=== PATIENT | male | born 1960 | race Caucasian/White ===

== ENCOUNTER 2017-01-09 12:06 | Inpatient (IN) | payer BC ==
[2017-01-09 12:42] VITALS: BMI 28.7
--- NOTE | 2017-01-09 16:38 | HP ---
CIWA Score - CIWA Score Nausea/Vomitin-No Nausea/No Vomiting Muscle Tremors: 4-Moderate,w/Arms Extend Anxiety: 4-Mod. Anxious/Guarded Agitation: 4-Moderately Restless Paroxysmal Sweats: 3 Orientation: 0-Oriented Tacttile Disturbances: 2-Mild Itch/Numbness/Burn Auditory Disturbances: 0-None Visual Disturbances: 0-None Headache: 0-None Present CIWA-Ar Total Score: 17 Admission ROS S - HPI Chief Complaint: Withdrawal sx. Allergies/Adverse Reactions: Allergies Allergy/AdvReac Type Severity Reaction Status Date / Time Barbiturates Allergy Verified 01/09/17 16:32 History of Present Illness: 56 y/o man with a long hx. of alcohol & benzo dependence is admitted for detox.Pt. is in OTP taking methadone 60mg daily. Pt. has been in previous detox with sobriety off & on. Exam Limitations: No Limitations - Ebola screening Have you traveled outside of the country in the last 21 days: No Have you had contact with anyone from an Ebola affected area: No Have you been sick,other than usual withdrawal symptoms: No Do you have a fever: No - Review of Systems Constitutional: Diaphoresis EENT: reports: No Symptoms Reported Respiratory: reports: No Symptoms reported Cardiac: reports: No Symptoms Reported GI: reports: Nausea, Abdominal cramping : reports: No Symptoms Reported Musculoskeletal: reports: No Symptoms Reported Integumentary: reports: Sweating Neuro: reports: Seizure (last in 2003 alcohol & benzo withdrawal), Tingling, Tremors Endocrine: reports: No Symptoms Reported Hematology: reports: No Symptoms Reported Psychiatric: reports: No Sypmtoms Reported Other Systems: Reviewed and Negative Patient History - Patient Medical History Hx Anemia: No Hx Asthma: No Hx Chronic Obstructive Pulmonary Disease (COPD): No Hx Cancer: No Hx Cardiac Disorders: Yes (intermittent AF) Hx Congestive Heart Failure: No Hx Hypertension: Yes Hx Hypercholesterolemia: Yes Hx Pacemaker: No HX Cerebrovascular Accident: No Hx Seizures: Yes (2003) Hx Diabetes: Yes Hx Gastrointestinal Disorders: No Hx Liver Disease: Yes Hx Genitourinary Disorders: No Hx Sexually Transmitted Disorders: No Hx Renal Disease (ESRD): No Hx Thyroid Disease: No Hx Human Immunodeficiency Virus (HIV): No Hx Hepatitis C: Yes (no tx.) Hx Depression: Yes (on meds) Hx Suicide Attempt: Yes (once OD) Hx Bipolar Disorder: Yes (not sure) Hx Schizophrenia: No - Patient Surgical History Past Surgical History: Yes Hx Abdominal Surgery: Yes (splenectomy 1989, strangulated umbilical hernia, colostomy reversed.) - PPD History Previous Implant?: Yes Documented Results: Negative w/o proof PPD to be Administered?: Yes - Smoking Cessation Smoking history: Current every day smoker Aproximately how many cigarettes per day: 5 (from 20) Hx Chewing Tobacco Use: No Initiated information on smoking cessation: Yes 'Breaking Loose' booklet given: 01/09/17 - Substance & Tx. History Hx Alcohol Use: Yes Hx Substance Use: Yes Substance Use Type: Alcohol, Tranquilizers Hx Substance Use Treatment: Yes (detox,OTP) - Substances Abused Alcohol Route: Oral Frequency: Daily Amount used: Vodka 1 pint, Beer 2(6packs) Age of first use: 15 Date of Last Use: 01/08/17 Alprazolam (Xanax) Route: Oral Frequency: Daily Amount used: 2mg Age of first use: 33 Date of Last Use: 01/01/17 Family Disease History - Family Disease History Family Disease History: Diabetes: Mother, Heart Disease: Father (HTN,CVA, Dementia), Other: Father, Brother (Heroin addict) Admission Physical Exam S - Vital Signs Vital Signs: Vital Signs - 24 hr 01/09/17 12:41 Temperature 97.3 F L Pulse Rate 90 Respiratory 18 Rate Blood Pressure 101/58 - Physical General Appearance: Yes: Tremorous, Irritable, Sweating, Anxious HEENTM: Yes: Within Normal Limits Respiratory: Yes: Chest Non-Tender, Lungs Clear, Normal Breath Sounds Neck: Yes: Supple Breast: Yes: Breast Exam Deferred Cardiology: Yes: Regular Rhythm, Regular Rate, S1, S2 Abdominal: Yes: Normal Bowel Sounds, Non Tender, Soft Genitourinary: Yes: Within Normal Limits Back: Yes: Within Normal Limits Musculoskeletal: Yes: Within Normal Limits Extremities: Yes: Tremors Neurological: Yes: Fully Oriented, Alert Integumentary: Yes: Diaphoresis Lymphatic: Yes: Within Normal Limits - Diagnostic (1) Alcohol dependence with uncomplicated withdrawal Current Visit: Yes Status: Acute (2) Opioid dependence on agonist therapy Current Visit: Yes Status: Acute (3) Sedative, hypnotic or anxiolytic dependence with withdrawal, uncomplicated Current Visit: Yes Status: Acute (4) Type II diabetes mellitus Current Visit: Yes Status: Acute Qualifiers: Diabetes mellitus complication status: without complication Diabetes mellitus intermediate card tender insulin use: with [facility] use Qualified Code(s): E11.9 - Type 2 diabetes mellitus without complications; Z79.4 - intermediate card tender ( current) use of insulin (5) HTN (hypertension) Current Visit: Yes Status: Acute Qualifiers: Hypertension type: essential hypertension Qualified Code(s): I10 - Essential (primary) hypertension (6) Hypercholesterolemia Current Visit: Yes Status: Acute Cleared for Admission [facility] - Detox or Rehab [facility] Level of Care: Medically Managed Detox Regimen/Protocol: Librium [facility] Breath Alcohol Content Breath Alcohol Content: 0 Urine Drug Screen - Results Drug Screen Negative: No Urine Drug Screen Results: BZO-Benzodiazepines, MTD-Methadone
[2017-01-09] MEDS ORDERED: P-EPHED 60MG/TRIPROLIDI 2.5MG TABLET PO PRN (17:02)
[2017-01-09] MEDS ORDERED: guaiFENesin/D-METHORPHAN HB 10 ML UNIT-DOSE CUPS PO PRN (17:02)
[2017-01-09] MEDS ORDERED: NICOTINE POLACRILEX 2 MG GUM BC PRN (17:02)
[2017-01-09] MEDS ORDERED: IBUPROFEN 400 MG TABLET (FP) PO PRN (17:02)
[2017-01-09] MEDS ORDERED: LOPERAMIDE HCL 2 MG CAPSULE PO PRN (17:02)
[2017-01-09] MEDS ORDERED: MAGNESIUM HYDROX 2400MG/30ML ORAL SUSPENSION 30 ML CUP PO PRN (17:02)
[2017-01-09] MEDS ORDERED: MENTHOL/PHENOL 1 EACH UD MM PRN (17:02)
[2017-01-09] MEDS ORDERED: ACETAMINOPHEN 325 MG TABLET (FP) PO PRN (17:02)
[2017-01-09] MEDS ORDERED: chlordiazePOXIDE HCL 25 MG CAPSULE PO PRN (17:02)
[2017-01-09] MEDS ORDERED: diphenhydrAMINE HCL 50 MG CAPSULE PO PRN (17:02)
[2017-01-09] MEDS ORDERED: MAG HYDROX/AL HYDROX/SIMETH 30 ML UNIT-DOSE CUP PO PRN (17:02)
[2017-01-09] MEDS ORDERED: MAGNESIUM CITRATE 300 ML BOTTLE PO PRN (17:02)
[2017-01-09] MEDS: chlordiazePOXIDE HCL 25 MG CAPSULE PO SCH ×2 (19:30→22:07)
[2017-01-09] MEDS: NICOTINE 14 MG/24 HOURS TOPICAL PATCH TD SCH (19:31)
[2017-01-09] MEDS: IBUPROFEN 400 MG TABLET (FP) PO PRN (19:34)
[2017-01-09] MEDS: ATORVASTATIN CA 10 MG TABLET (FP) PO SCH (22:07)
[2017-01-09] MEDS: THIAMINE HCL 100 MG TABLET (FP) PO SCH (22:07)
[2017-01-09] MEDS: INSULIN SLIDING SCALE (NOVOLOG) 1 VIAL SQ SCH (22:12)
[2017-01-09] MEDS ORDERED: INSULIN (NOVOLOG) ASPART 100 UNITS/ML 10ML VIAL ONE (22:12)
[2017-01-09] MEDS: INSULIN DETEMIR 100 UNITS/ML MDV SQ SCH (22:13)
[2017-01-10] MEDS: IBUPROFEN 400 MG TABLET (FP) PO PRN ×3 (05:41→18:55)
[2017-01-10] MEDS: chlordiazePOXIDE HCL 25 MG CAPSULE PO SCH (05:41)
[2017-01-10] MEDS: glyBURIDE 5 MG TABLET (UD) PO SCH ×2 (07:19→17:13)
[2017-01-10] MEDS: metFORMIN HCL 500 MG TABLET (FP) PO SCH ×2 (07:19→17:13)
[2017-01-10] MEDS: INSULIN SLIDING SCALE (NOVOLOG) 1 VIAL SQ SCH ×4 (07:20→22:55)
[2017-01-10] MEDS ORDERED: METHADONE HCL 10 MG TABLET PO ONE (08:10)
[2017-01-10] MEDS ORDERED: METHADONE 40 MG, METHADONE 20 MG PO ONE (08:20)
--- NOTE | 2017-01-10 08:50 | CONSULT ---
[facility] Psychiatric Consult - Data Date of interview: 01/10/17 Admission source: [facility] Identifying data: This is 56 years old male with psycvhiatric hospitalization history intoxicated with: Alcohol, Opioids, Xanax, Nicotine Substance Abuse History: - Smoking Cessation. Smoking history: Current every day smoker. Aproximately how many cigarettes per day: 5 (from 20). Hx Chewing Tobacco Use: No. Initiated information on smoking cessation: Yes. 'Breaking Loose' booklet given: 01/09/17. - Substance & Tx. History. Hx Alcohol Use: Yes. Hx Substance Use: Yes. Substance Use Type: Alcohol, Tranquilizers. Hx Substance Use Treatment: Yes (detox,OTP). - Substances Abused. Alcohol. Route: Oral. Frequency: Daily. Amount used: Vodka 1 pint, Beer 2(6packs). Age of first use: 15. Date of Last Use: 01/08/17. Alprazolam (Xanax). Route: Oral. Frequency: Daily. Amount used: 2mg. Age of first use: 33. Date of Last Use: 01/01/17 Medical History: MMTP 60mg per day, HTN, Hypercholesterolemia, DM-2, Psychiatric History: PATIENT REPORTS ANXIETY AND DEPRESSION HISTORY, REPORTS HISTORY OF ODSYCHIATRIC ADMISSION ON 2012 FOR SAFETY, REPORTS ON 2012 BEING UNDER INFLUENCE, REPORTS NO SUICIDAL ATTEMPTS SINCE THEN , REPORTS TAKING PRIOR TO ADMISSION: Remeron 15mg po qhs. Seroquel 50mg poqd Physical/Sexual Abuse/Trauma History: Denies Additional Comment: Remeron 15mg po qhs. Seroquel 50mg poqd Mental Status Exam - Mental Status Exam Alert and Oriented to: Person Cognitive Function: Fair Patient Appearance: Unkempt Mood: Sad Affect: Flat Patient Behavior: Sedated Speech Pattern: Delayed Voice Loudness: Mildly Soft/Quiet Thought Process: Circumstantial Thought Disorder: Being Controlled Hallucinations: Denies Suicidal Ideation: Denies Homicidal Ideation: Denies Insight/Judgement: Fair Sleep: Difficulty falling asleep Appetite: Weight gain Muscle strength/Tone: Normal Gait/Station: Shuffling Additional Comments: Remeron 15mg po qhs. Seroquel 50mg poqd Psychiatric Findings - Problem List ([place] 1, 2,3) (1) Alcohol dependence with uncomplicated withdrawal Current Visit: Yes Status: Acute (2) Opioid dependence on agonist therapy Current Visit: Yes Status: Acute (3) Benzodiazepine abuse Current Visit: Yes Status: Acute (4) Nicotine dependence Current Visit: Yes Status: Acute - Initial Treatment Plan Initial Treatment Plan: Remeron 15mg po qhs. Seroquel 50mg poqd
[2017-01-10] MEDS ORDERED: METHADONE HCL 40 MG DISPERSABLE TABLET ONE (09:26)
[2017-01-10] MEDS ORDERED: METHADONE HCL 10 MG TABLET ONE (09:26)
--- NOTE | 2017-01-10 10:02 | PN ---
[facility] CIWA - CIWA Score Nausea/Vomitin Muscle Tremors: 3 Anxiety: 3 Agitation: 3 Paroxysmal Sweats: 1-Minimal Palms Moist Orientation: 0-Oriented Tacttile Disturbances: 1-Very Mild Itch/Numbness Auditory Disturbances: 1-Very Mild Visual Disturbances: 1-Very Mild Sensitivity Headache: 2-Mild CIWA-Ar Total Score: 18 BHS Progress Note (SOAP) Subjective: ALERT,IRRITABLE.ANXIOUS,INTERRUPTED SLEEP,TREMOR Objective: 01/10/17 10:00 Vital Signs Temperature 96.8 F L 01/10/17 09:40 Pulse Rate 80 01/10/17 09:40 Respiratory Rate 16 01/10/17 09:40 Blood Pressure 108/52 01/10/17 09:40 O2 Sat by Pulse Oximetry (%) EKG NSR,NORMAL ECG Laboratory Last Values POC Glucometer 110 UNITS (()) 01/10/17 06:29 LABS PENDING Assessment: 01/10/17 10:01 WITHDRAWAL SYMPTOM Plan: CONTINUE DETOX,BGM MONITORING
[2017-01-10 10:06] LABS: MCH 30.7 pg (25.7-33.7); MCHC 32.9 g/dl (32.0-35.9); MEAN CELL VOLUME 93.3 fl (80-96); MEAN PLT VOLUME 11.5 fl (7.5-11.1); PLATELET COUNT 201 K/MM3 (134-434); RDW 16.6 % (11.9-15.9); WHITE BLOOD COUNT 9.8 K/mm3 (4.0-10.0)
--- NOTE | 2017-01-10 10:08 | PN ---
BHS Progress Note Note: PATIENT WOULD LIKE REGIMEN TO CHANGE TO VALIUM INSTEAD OF LIBRIUM
[2017-01-10] MEDS: QUEtiapine FUMARATE 50 MG TABLET PO SCH (10:22)
[2017-01-10] MEDS: ASPIRIN COATED 81 MG TABLET.EC PO SCH (10:22)
[2017-01-10] MEDS: PRENATAL VITAMINS W/ FOLIC ACID TABLET (FP) PO SCH (10:22)
[2017-01-10] MEDS: NICOTINE 14 MG/24 HOURS TOPICAL PATCH TD SCH (10:22)
[2017-01-10] MEDS: ENALAPRIL MALEATE 5 MG TABLET (FP) PO SCH (10:26)
[2017-01-10 10:42] LABS: ALBUMIN 3.1 g/dl (3.4-5.0); BILIRUBIN,TOTAL 0.5 mg/dL (0.2-1.0); CALCIUM 9.7 mg/dL (8.5-10.1); COCKROFT - GAULT 72.29; CREATININE 1.4 mg/dL (0.7-1.3); TOT PROT 6.9 g/dl (6.4-8.2)
[2017-01-10] MEDS ORDERED: diazePAM 5 MG TABLET PO ONE (11:14)
[2017-01-10] MEDS ORDERED: INSULIN (NOVOLOG) ASPART 100 UNITS/ML 10ML VIAL ONE (11:27)
--- NOTE | 2017-01-10 11:29 | EKG ---
Test Reason : Blood Pressure : / mmHG Vent. Rate : 074 BPM Atrial Rate : 074 BPM P-R Int : 198 ms QRS Dur : 114 ms QT Int : 404 ms P-R-T Axes : 058 051 045 degrees QTc Int : 448 ms NORMAL SINUS RHYTHM NORMAL ECG NO PREVIOUS ECGS AVAILABLE Confirmed by EVELIN RUVALCABA MD ([id number]) on 01/10/2017 11:29:35 AM Referred By: Confirmed By:EVELIN RUVALCABA MD
[2017-01-10] MEDS: diazePAM 5 MG TABLET PO SCH ×2 (14:22→22:55)
[2017-01-10] MEDS ORDERED: chlordiazePOXIDE HCL 25 MG CAPSULE PO SCH (17:00)
[2017-01-10 18:20] LABS: URINE APPEARANCE CLEAR; URINE BILIRUBIN NEGATIVE (NEGATIVE); URINE BLOOD NEGATIVE (NEGATIVE); URINE COLOR LTYELLOW; URINE GLUCOSE (UA) NEGATIVE (NEGATIVE); URINE KETONE NEGATIVE (NEGATIVE); URINE LEUK ESTERASE NEGATIVE (NEGATIVE); URINE NITRITE NEGATIVE (NEGATIVE); URINE PROTEIN NEGATIVE (NEGATIVE); URINE UROBILINOGEN NEGATIVE E.U./dl (0.2-1.0)
[2017-01-10] MEDS: diazePAM 5 MG TABLET PO PRN (18:55)
[2017-01-10] MEDS: ATORVASTATIN CA 10 MG TABLET (FP) PO SCH (22:31)
[2017-01-10] MEDS: THIAMINE HCL 100 MG TABLET (FP) PO SCH (22:31)
[2017-01-10] MEDS: MIRTAZAPINE 15 MG TABLET (FP) PO SCH (22:39)
[2017-01-10] MEDS: INSULIN DETEMIR 100 UNITS/ML MDV SQ SCH (22:55)
[2017-01-11] MEDS ORDERED: METHADONE HCL 40 MG DISPERSABLE TABLET ONE (04:06)
[2017-01-11] MEDS ORDERED: METHADONE HCL 10 MG TABLET ONE (04:07)
[2017-01-11] MEDS: diazePAM 5 MG TABLET PO SCH ×3 (05:35→22:26)
[2017-01-11] MEDS: METHADONE 40 MG, METHADONE 20 MG PO SCH (05:36)
[2017-01-11] MEDS: IBUPROFEN 400 MG TABLET (FP) PO PRN ×2 (05:37→17:46)
[2017-01-11] MEDS ORDERED: METHADONE HCL 40 MG DISPERSABLE TABLET PO SCH (06:00)
[2017-01-11] MEDS: metFORMIN HCL 500 MG TABLET (FP) PO SCH ×2 (07:49→16:54)
[2017-01-11] MEDS ORDERED: INSULIN (NOVOLOG) ASPART 100 UNITS/ML 10ML VIAL ONE ×4 (07:55→22:19)
[2017-01-11] MEDS: INSULIN SLIDING SCALE (NOVOLOG) 1 VIAL SQ SCH ×4 (08:00→22:26)
[2017-01-11] MEDS: glyBURIDE 5 MG TABLET (UD) PO SCH ×2 (08:10→18:27)
--- NOTE | 2017-01-11 09:40 | PN ---
S CIWA - CIWA Score Nausea/Vomitin Muscle Tremors: 3 Anxiety: 3 Agitation: 2 Paroxysmal Sweats: 1-Minimal Palms Moist Orientation: 0-Oriented Tacttile Disturbances: 1-Very Mild Itch/Numbness Auditory Disturbances: 1-Very Mild Visual Disturbances: 1-Very Mild Sensitivity Headache: 2-Mild CIWA-Ar Total Score: 17 BHS Progress Note (SOAP) Subjective: ALER5T,IRRITABLE,ANXIOUS,INTERRUPTED SLEEP,TREMOR Objective: 01/11/17 09:39 Vital Signs Temperature 97.9 F 01/11/17 06:00 Pulse Rate 69 01/11/17 06:00 Respiratory Rate 18 01/11/17 06:00 Blood Pressure 104/58 01/11/17 06:00 O2 Sat by Pulse Oximetry (%) 01/11/17 09:39 Laboratory Last Values WBC 9.8 K/mm3 (4.0-10.0) 01/10/17 08:55 RBC 4.02 M/mm3 (4.00-5.60) 01/10/17 08:55 Hgb 12.3 GM/dL (11.7-16.9) 01/10/17 08:55 Hct 37.5 % (35.4-49) 01/10/17 08:55 MCV 93.3 fl (80-96) 01/10/17 08:55 MCHC 32.9 g/dl (32.0-35.9) 01/10/17 08:55 RDW 16.6 % (11.9-15.9) H 01/10/17 08:55 Plt Count 201 K/MM3 (134-434) 01/10/17 08:55 MPV 11.5 fl (7.5-11.1) H 01/10/17 08:55 Sodium 138 mmol/L (136-145) 01/10/17 08:00 Potassium 4.8 mmol/L (3.5-5.1) 01/10/17 08:00 Chloride 100 mmol/L (98-107) 01/10/17 08:00 Carbon Dioxide 26 mmol/L (21-32) 01/10/17 08:00 Anion Gap 12 (8-16) 01/10/17 08:00 BUN 45 mg/dL (7-18) H 01/10/17 08:00 Creatinine 1.4 mg/dL (0.7-1.3) H 01/10/17 08:00 Creat Clearance w eGFR 52.62 (>60) 01/10/17 08:00 POC Glucometer 170 UNITS (()) 01/11/17 05:34 Random Glucose 104 mg/dL (74-106) 01/10/17 08:00 Calcium 9.7 mg/dL (8.5-10.1) 01/10/17 08:00 Total Bilirubin 0.5 mg/dL (0.2-1.0) 01/10/17 08:00 AST 302 U/L (15-37) H 01/10/17 08:00 ALT 147 U/L (12-78) H 01/10/17 08:00 Alkaline Phosphatase 73 U/L (45-117) 01/10/17 08:00 Total Protein 6.9 g/dl (6.4-8.2) 01/10/17 08:00 Albumin 3.1 g/dl (3.4-5.0) L 01/10/17 08:00 Urine Color Ltyellow 01/10/17 13:15 Urine Appearance Clear 01/10/17 13:15 Urine pH 5.0 (5.0-8.0) 01/10/17 13:15 Ur Specific [place] 1.015 (1.001-1.035) 01/10/17 13:15 Urine Protein Negative (NEGATIVE) 01/10/17 13:15 Urine Glucose (UA) Negative (NEGATIVE) 01/10/17 13:15 Urine Ketones Negative (NEGATIVE) 01/10/17 13:15 Urine Blood Negative (NEGATIVE) 01/10/17 13:15 Urine Nitrite Negative (NEGATIVE) 01/10/17 13:15 Urine Bilirubin Negative (NEGATIVE) 01/10/17 13:15 Urine Urobilinogen Negative E.U./dl (0.2-1.0) 01/10/17 13:15 Ur Leukocyte Esterase Negative (NEGATIVE) 01/10/17 13:15 RPR Titer Nonreactive (NONREACTIVE) 01/10/17 08:00 01/11/17 09:39 Assessment: 01/11/17 09:39 WITHDRAWAL SYMPTOM Plan: CONTINUE DETOX,BGM MONITORING
[2017-01-11] MEDS: ASPIRIN COATED 81 MG TABLET.EC PO SCH (10:31)
[2017-01-11] MEDS: QUEtiapine FUMARATE 50 MG TABLET PO SCH (10:31)
[2017-01-11] MEDS: NICOTINE 14 MG/24 HOURS TOPICAL PATCH TD SCH (10:31)
[2017-01-11] MEDS: ENALAPRIL MALEATE 5 MG TABLET (FP) PO SCH (10:31)
[2017-01-11] MEDS: PRENATAL VITAMINS W/ FOLIC ACID TABLET (FP) PO SCH (10:31)
[2017-01-11] MEDS: diazePAM 5 MG TABLET PO PRN ×2 (10:34→20:18)
[2017-01-11] MEDS ORDERED: chlordiazePOXIDE 5 MG CAPSULE PO SCH (17:00)
[2017-01-11] MEDS: THIAMINE HCL 100 MG TABLET (FP) PO SCH (22:25)
[2017-01-11] MEDS: ATORVASTATIN CA 10 MG TABLET (FP) PO SCH (22:25)
[2017-01-11] MEDS: MIRTAZAPINE 15 MG TABLET (FP) PO SCH (22:25)
[2017-01-11] MEDS: INSULIN DETEMIR 100 UNITS/ML MDV SQ SCH (22:27)
[2017-01-12] MEDS ORDERED: METHADONE HCL 10 MG TABLET ONE (04:12)
[2017-01-12] MEDS ORDERED: METHADONE HCL 40 MG DISPERSABLE TABLET ONE (04:12)
[2017-01-12] MEDS: METHADONE 40 MG, METHADONE 20 MG PO SCH (05:40)
[2017-01-12] MEDS: INSULIN SLIDING SCALE (NOVOLOG) 1 VIAL SQ SCH ×4 (07:37→22:42)
[2017-01-12] MEDS: glyBURIDE 5 MG TABLET (UD) PO SCH ×2 (08:02→17:30)
[2017-01-12] MEDS: metFORMIN HCL 500 MG TABLET (FP) PO SCH ×2 (08:03→17:30)
--- NOTE | 2017-01-12 10:23 | PN ---
S Progress Note (SOAP) Subjective: ALERT,IRRITABLE,ANXIOUS,INTERRUPTED SLEEP,PAIN IN THE BODY Objective: 01/12/17 10:22 Vital Signs Temperature 97.9 F 01/12/17 09:53 Pulse Rate 80 01/12/17 09:53 Respiratory Rate 16 01/12/17 09:53 Blood Pressure 115/54 01/12/17 09:53 O2 Sat by Pulse Oximetry (%) Assessment: 01/12/17 10:22 WITHDRAWAL SYMPTOM Plan: CONTINUE DETOX,DISCHARGE IN AM
[2017-01-12] MEDS: ASPIRIN COATED 81 MG TABLET.EC PO SCH (10:32)
[2017-01-12] MEDS: PRENATAL VITAMINS W/ FOLIC ACID TABLET (FP) PO SCH (10:32)
[2017-01-12] MEDS: QUEtiapine FUMARATE 50 MG TABLET PO SCH (10:32)
[2017-01-12] MEDS: diazePAM 5 MG TABLET PO SCH ×2 (10:32→22:42)
[2017-01-12] MEDS: ENALAPRIL MALEATE 5 MG TABLET (FP) PO SCH (10:33)
[2017-01-12] MEDS: NICOTINE 14 MG/24 HOURS TOPICAL PATCH TD SCH (10:33)
[2017-01-12] MEDS: diazePAM 5 MG TABLET PO PRN ×2 (14:04→19:39)
[2017-01-12] MEDS ORDERED: chlordiazePOXIDE HCL 10 MG CAPSULE PO SCH (17:00)
[2017-01-12] MEDS: IBUPROFEN 400 MG TABLET (FP) PO PRN (18:24)
[2017-01-12] MEDS: MIRTAZAPINE 15 MG TABLET (FP) PO SCH (22:42)
[2017-01-12] MEDS: ATORVASTATIN CA 10 MG TABLET (FP) PO SCH (22:42)
[2017-01-12] MEDS: THIAMINE HCL 100 MG TABLET (FP) PO SCH (22:42)
[2017-01-12] MEDS: INSULIN DETEMIR 100 UNITS/ML MDV SQ SCH (22:43)
[2017-01-12] MEDS ORDERED: INSULIN (NOVOLOG) ASPART 100 UNITS/ML 10ML VIAL ONE (22:44)
[2017-01-13] MEDS ORDERED: METHADONE HCL 10 MG TABLET ONE (05:29)
[2017-01-13] MEDS ORDERED: METHADONE HCL 40 MG DISPERSABLE TABLET ONE (05:29)
[2017-01-13] MEDS: METHADONE 40 MG, METHADONE 20 MG PO SCH (05:46)
[2017-01-13 06:40] VITALS: TEMP 97.9
[2017-01-13] MEDS: metFORMIN HCL 500 MG TABLET (FP) PO SCH (07:30)
[2017-01-13] MEDS: glyBURIDE 5 MG TABLET (UD) PO SCH (07:30)
[2017-01-13] MEDS: INSULIN SLIDING SCALE (NOVOLOG) 1 VIAL SQ SCH (07:31)
--- NOTE | 2017-01-13 07:59 | PN ---
S Progress Note (SOAP) Subjective: alert,no complaint Objective: 01/13/17 07:57 Vital Signs Temperature 97.9 F 01/13/17 06:39 Pulse Rate 97 H 01/13/17 06:39 Respiratory Rate 20 01/13/17 06:39 Blood Pressure 133/62 01/13/17 06:39 O2 Sat by Pulse Oximetry (%) Assessment: 01/13/17 07:57 detox completed,no withdrawal symptom,bgm 218 01/13/17 07:58 Plan: discharge today,follow up with after care program as arrangement and pmd for medical problem
--- NOTE | 2017-01-13 08:00 | DS ---
[facility] Detox Discharge Summary Admission Date: 01/09/17 Discharge Date: 01/13/17 - History Present History: Alcohol Dependence, Sedative Dependence, MMTP Additional Comments: follow up with after care program as arrangement and pmd for medical problem Pertinent Past History: hyperension type 2 dm hypercholesterolemia - Physical Exam Results Vital Signs: Vital Signs Temperature 97.9 F 01/13/17 06:39 Pulse Rate 97 H 01/13/17 06:39 Respiratory Rate 20 01/13/17 06:39 Blood Pressure 133/62 01/13/17 06:39 O2 Sat by Pulse Oximetry (%) Pertinent Admission Physical Exam Findings: withdrawal symptom - Treatment Hospital Course: Detox Protocol Followed, Detoxed Safely, Responded well, Discharged Condition Good, Rehab Referral Accepted Patient has Accepted a Rehab Referral to: [facility] - Medication Discharge Medications: Ambulatory Orders Atorvastatin Calcium 10 mg PO HS 01/09/17 Glyburide 5 mg PO DAILY 01/09/17 Lisinopril 5 mg PO DAILY 01/09/17 Metformin HCl [Glucophage] 1,000 mg PO DAILY 01/09/17 Mirtazapine [Remeron -] 15 mg PO HS #30 tablet 01/10/17 Quetiapine Fumarate [Seroquel -] 50 mg PO DAILY #30 tablet 01/10/17 - Diagnosis (1) Alcohol dependence with uncomplicated withdrawal Current Visit: Yes Status: Acute (2) HTN (hypertension) Current Visit: Yes Status: Acute Qualifiers: Hypertension type: essential hypertension Qualified Code(s): I10 - Essential (primary) hypertension (3) Hypercholesterolemia Current Visit: Yes Status: Acute (4) Nicotine dependence Current Visit: Yes Status: Acute (5) Opioid dependence on agonist therapy Current Visit: Yes Status: Acute (6) Sedative, hypnotic or anxiolytic dependence with withdrawal, uncomplicated Current Visit: Yes Status: Acute (7) Type II diabetes mellitus Current Visit: Yes Status: Acute Qualifiers: Diabetes mellitus complication status: without complication Diabetes mellitus care home insulin use: with care home use Qualified Code(s): E11.9 - Type 2 diabetes mellitus without complications - AMA Did Patient Leave Against Medical Advice: No
[2017-01-13] MEDS: ENALAPRIL MALEATE 5 MG TABLET (FP) PO SCH (09:43)
[2017-01-13] MEDS: ASPIRIN COATED 81 MG TABLET.EC PO SCH (09:43)
[2017-01-13] MEDS: PRENATAL VITAMINS W/ FOLIC ACID TABLET (FP) PO SCH (09:43)
[2017-01-13] MEDS: QUEtiapine FUMARATE 50 MG TABLET PO SCH (09:43)
[2017-01-13] MEDS: diazePAM 5 MG TABLET PO SCH (09:43)
[2017-01-13 09:44] VITALS: BP 140/69; PULSE 92
[2017-01-14] MEDS ORDERED: diazePAM 5 MG TABLET PO SCH (10:00)
== END 2017-01-13 09:46 | disposition home or self-care (01) | DRG 773 ==
LOC: YASAS 12:06 → Y6N 17:13
PROVIDERS: ADMIT Internal Medicine; ATTEND Internal Medicine Addiction Medicine
PROC: HZ2ZZZZ Detoxification Services for Substance Abuse Treatment (ICD-10-PCS; principal; 2017-01-13)
DX: F11.23 Opioid dependence with withdrawal (principal); F13.230 Sedative, hypnotic or anxiolytic dependence with withdrawal, uncomplicated; F10.230 Alcohol dependence with withdrawal, uncomplicated; F17.210 Nicotine dependence, cigarettes, uncomplicated; I10 Essential (primary) hypertension; E11.9 Type 2 diabetes mellitus without complications; Z79.4 Long term (current) use of insulin; Z79.84 Long term (current) use of oral hypoglycemic drugs; E78.00 Pure hypercholesterolemia, unspecified
CPT/HCPCS: 36415; 80053; 81003; 85027; 86593; 93005; 93010

== ENCOUNTER 2017-02-22 18:15 | Inpatient (IN) | payer BC ==
[2017-02-22 19:09] VITALS: BMI 30.1
--- NOTE | 2017-02-22 19:59 | HP ---
CIWA Score - CIWA Score Nausea/Vomitin-Mild Nausea/No Vomiting Muscle Tremors: 4-Moderate,w/Arms Extend Anxiety: 4-Mod. Anxious/Guarded Agitation: 4-Moderately Restless Paroxysmal Sweats: 1-Minimal Palms Moist Orientation: 1-Uncertain about Date Tacttile Disturbances: 0-None Auditory Disturbances: 0-None Visual Disturbances: 0-None Headache: 1-Very Mild CIWA-Ar Total Score: 16 Admission ROS S - HPI Chief Complaint: withdrawal sx Allergies/Adverse Reactions: Allergies Allergy/AdvReac Type Severity Reaction Status Date / Time Barbiturates Allergy Verified 01/09/17 16:32 History of Present Illness: 56 years old male with long history of alcohol xanax nicotine dependence, has hypertension diabetes ii and hyperlipidemia and depression is admitted to detox Exam Limitations: No Limitations - Ebola screening Have you traveled outside of the country in the last 21 days: No Have you had contact with anyone from an Ebola affected area: No Have you been sick,other than usual withdrawal symptoms: No Do you have a fever: No - Review of Systems Constitutional: Chills, Changes in sleep, Weight Stable EENT: reports: Dental Problems (no teeth), Other (left fore head hit "locker" negative ct head x "days" ago) Respiratory: reports: No Symptoms reported Cardiac: reports: No Symptoms Reported GI: reports: Nausea, Poor Fluid Intake, Abdominal cramping : reports: No Symptoms Reported Musculoskeletal: reports: Back Pain Integumentary: reports: Change in Color (fore head) Neuro: reports: Tremors Endocrine: reports: No Symptoms Reported Hematology: reports: No Symptoms Reported Psychiatric: reports: Judgement Intact, Depressed Other Systems: Reviewed and Negative Patient History - Patient Medical History Hx Anemia: No Hx Asthma: No Hx Chronic Obstructive Pulmonary Disease (COPD): No Hx Cancer: No Hx Cardiac Disorders: No Hx Congestive Heart Failure: No Hx Hypertension: No Hx Hypercholesterolemia: Yes Hx Pacemaker: No HX Cerebrovascular Accident: No Hx Seizures: No Hx Dementia: No Hx Diabetes: Yes Hx Gastrointestinal Disorders: No Hx Liver Disease: Yes Hx Genitourinary Disorders: No Hx Sexually Transmitted Disorders: No Hx Renal Disease (ESRD): No Hx Thyroid Disease: No Hx Human Immunodeficiency Virus (HIV): No Hx Hepatitis C: Yes (no tx.) Hx Depression: Yes Hx Suicide Attempt: No Hx Bipolar Disorder: No (not sure) Hx Schizophrenia: No - Patient Surgical History Past Surgical History: Yes Hx Neurologic Surgery: No Hx Cataract Extraction: No Hx Cardiac Surgery: No Hx Lung Surgery: No Hx Breast Surgery: No Hx Breast Biopsy: No Hx Abdominal Surgery: Yes (splenectomy 1989, strangulated umbilical hernia, colostomy reversed.) Hx Appendectomy: No Hx Cholecystectomy: No Hx Genitourinary Surgery: No Hx Orthopedic Surgery: No Anesthesia Reaction: No - PPD History Previous Implant?: Yes Documented Results: Negative w/o proof Implanted On Prior [facility] Admission?: Yes Date: 01/11/17 PPD to be Administered?: No - Smoking Cessation Smoking history: Current every day smoker Aproximately how many cigarettes per day: 10 Cigars Per Day: 0 Hx Chewing Tobacco Use: No Initiated information on smoking cessation: Yes 'Breaking Loose' booklet given: 02/22/17 - Substance & Tx. History Hx Alcohol Use: Yes Hx Substance Use: Yes Substance Use Type: Alcohol, Heroin, Tranquilizers Hx Substance Use Treatment: Yes - Substances Abused Alcohol Route: Oral Frequency: Daily Amount used: 2 pints shon Age of first use: 15 Date of Last Use: 02/22/17 Alprazolam (Xanax) Route: Oral Frequency: 3-6 times per week Amount used: 8 mg Age of first use: 31 Date of Last Use: 02/22/17 ativan Route: Oral Frequency: Daily Amount used: 8 mg Age of first use: 31 Date of Last Use: 02/20/17 Diazepam Route: Oral Frequency: 3-6 times per week Amount used: 30 mg Age of first use: 31 Date of Last Use: 02/21/17 Family Disease History - Family Disease History Family Disease History: Diabetes: Mother, Heart Disease: Father (HTN,CVA, Dementia ), Other: Father, Brother (Heroin addict) Admission Physical Exam S - Vital Signs Vital Signs: Vital Signs - 24 hr 02/22/17 19:05 Temperature 98.6 F Pulse Rate 97 H Respiratory 20 Rate Blood Pressure 143/75 - Physical General Appearance: Yes: Appropriately Dressed, Mild Distress, Obese, Tremorous , Irritable, Sweating, Anxious HEENTM: Yes: Hearing grossly Normal, Normal ENT Inspection, Normocephalic, Normal Voice Respiratory: Yes: Chest Non-Tender, Lungs Clear, Normal Breath Sounds, No Respiratory Distress, No Accessory Muscle Use Neck: Yes: Supple, Trachea in good position Breast: Yes: Breasts Symetrical Cardiology: Yes: Regular Rhythm, S1, S2, Tachycardia Abdominal: Yes: Non Tender, Soft Genitourinary: Yes: Within Normal Limits Back: Yes: Normal Inspection Musculoskeletal: Yes: full range of Motion, Gait Steady, Back pain Extremities: Yes: Normal Inspection, Normal Range of Motion, Non-Tender, Tremors Neurological: Yes: Alert, Motor Strength 5/5, Normal Response, Depressed Affect Integumentary: Yes: Within Normal Limits Lymphatic: Yes: Within Normal Limits - Diagnostic (1) Alcohol dependence with uncomplicated withdrawal Current Visit: Yes Status: Acute (2) HTN (hypertension) Current Visit: Yes Status: Chronic Qualifiers: Hypertension type: essential hypertension Qualified Code(s): I10 - Essential (primary) hypertension (3) Hypercholesterolemia Current Visit: Yes Status: Chronic (4) Nicotine dependence Current Visit: Yes Status: Acute Qualifiers: Nicotine product type: cigarettes Substance use status: in withdrawal Qualified Code(s): F17.213 - Nicotine dependence, cigarettes, with withdrawal (5) Opioid dependence on agonist therapy Current Visit: Yes Status: Chronic Comment: 60 mg verification pending (6) Sedative, hypnotic or anxiolytic dependence with withdrawal, uncomplicated Current Visit: Yes Status: Acute (7) Type II diabetes mellitus Current Visit: Yes Status: Chronic Qualifiers: Diabetes mellitus complication status: without complication Diabetes mellitus long term acute care registered nurse insulin use: without fdc use Qualified Code(s): E11.9 - Type 2 diabetes mellitus without complications (8) Hepatitis C antibody test positive Current Visit: Yes Status: Resolved (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
[2017-02-22] MEDS ORDERED: P-EPHED 60MG/TRIPROLIDI 2.5MG TABLET PO PRN (20:12)
[2017-02-22] MEDS ORDERED: LOPERAMIDE HCL 2 MG CAPSULE PO PRN (20:12)
[2017-02-22] MEDS ORDERED: MAGNESIUM CITRATE 300 ML BOTTLE PO PRN (20:12)
[2017-02-22] MEDS ORDERED: ACETAMINOPHEN 325 MG TABLET (FP) PO PRN (20:12)
[2017-02-22] MEDS ORDERED: diphenhydrAMINE HCL 50 MG CAPSULE PO PRN (20:12)
[2017-02-22] MEDS ORDERED: guaiFENesin/D-METHORPHAN HB 10 ML UNIT-DOSE CUPS PO PRN (20:12)
[2017-02-22] MEDS ORDERED: MENTHOL/PHENOL 1 EACH UD MM PRN (20:12)
[2017-02-22] MEDS ORDERED: NICOTINE POLACRILEX 2 MG GUM BC PRN (20:12)
[2017-02-22] MEDS ORDERED: diazePAM 5 MG TABLET PO ONE (20:12)
[2017-02-22] MEDS ORDERED: MAGNESIUM HYDROX 2400MG/30ML ORAL SUSPENSION 30 ML CUP PO PRN (20:12)
[2017-02-22] MEDS ORDERED: IBUPROFEN 400 MG TABLET (FP) PO PRN (20:12)
[2017-02-22] MEDS ORDERED: MAG HYDROX/AL HYDROX/SIMETH 30 ML UNIT-DOSE CUP PO PRN (20:12)
[2017-02-22 21:25] LABS: URINE APPEARANCE CLEAR; URINE BILIRUBIN NEGATIVE (NEGATIVE); URINE BLOOD NEGATIVE (NEGATIVE); URINE COLOR YELLOW; URINE GLUCOSE (UA) 3+ (NEGATIVE); URINE KETONE NEGATIVE (NEGATIVE); URINE LEUK ESTERASE NEGATIVE (NEGATIVE); URINE NITRITE NEGATIVE (NEGATIVE); URINE PROTEIN NEGATIVE (NEGATIVE); URINE UROBILINOGEN NEGATIVE E.U./dl (0.2-1.0)
[2017-02-22] MEDS ORDERED: ATORVASTATIN CA 10 MG TABLET (FP) PO SCH (22:00)
[2017-02-22] MEDS ORDERED: THIAMINE HCL 100 MG TABLET (FP) PO SCH (22:00)
[2017-02-22] MEDS: diazePAM 5 MG TABLET PO SCH (23:05)
[2017-02-23] MEDS: diazePAM 5 MG TABLET PO PRN ×2 (01:56→08:59)
[2017-02-23] MEDS: diazePAM 5 MG TABLET PO SCH (05:16)
[2017-02-23] MEDS ORDERED: METHADONE HCL 40 MG DISPERSABLE TABLET PO SCH (06:00)
[2017-02-23] MEDS ORDERED: glyBURIDE 5 MG TABLET (UD) PO SCH (07:00)
[2017-02-23] MEDS ORDERED: metFORMIN HCL 500 MG TABLET (FP) PO SCH ×2 (07:00→16:30)
[2017-02-23] MEDS ORDERED: INSULIN SLIDING SCALE (NOVOLOG) 1 VIAL SQ SCH (07:45)
[2017-02-23] MEDS ORDERED: INSULIN (NOVOLOG) ASPART 100 UNITS/ML 10ML VIAL ONE (07:49)
[2017-02-23] MEDS ORDERED: METHADONE 40 MG, METHADONE 20 MG PO SCH (08:00)
[2017-02-23] MEDS ORDERED: METHADONE HCL 40 MG DISPERSABLE TABLET ONE (08:17)
[2017-02-23] MEDS ORDERED: METHADONE HCL 10 MG TABLET ONE (08:18)
[2017-02-23] MEDS ORDERED: NICOTINE 14 MG/24 HOURS TOPICAL PATCH TD SCH (10:00)
[2017-02-23] MEDS ORDERED: LISINOPRIL 5 MG TABLET (FP) PO SCH (10:00)
[2017-02-23] MEDS ORDERED: PRENATAL VITAMINS W/ FOLIC ACID TABLET (FP) PO SCH (10:00)
[2017-02-23 10:04] VITALS: BP 156/71; PULSE 98; TEMP 97.7
[2017-02-23 10:19] LABS: MCH 30.4 pg (25.7-33.7); MCHC 33.3 g/dl (32.0-35.9); MEAN CELL VOLUME 91.4 fl (80-96); MEAN PLT VOLUME 10.8 fl (7.5-11.1); PLATELET COUNT 190 K/MM3 (134-434); RDW 14.2 % (11.9-15.9); WHITE BLOOD COUNT 8.8 K/mm3 (4.0-10.0)
--- NOTE | 2017-02-23 10:19 | PN ---
S CIWA - CIWA Score Nausea/Vomitin Muscle Tremors: 3 Anxiety: 2 Agitation: 3 Paroxysmal Sweats: 3 Orientation: 0-Oriented Tacttile Disturbances: 2-Mild Itch/Numbness/Burn Auditory Disturbances: 0-None Visual Disturbances: 0-None Headache: 0-None Present CIWA-Ar Total Score: 16 BHS Progress Note (SOAP) Subjective: interrupted sleep, sweats, shakes , lbp Objective: 02/23/17 10:17 Vital Signs Temperature 97.7 F 02/23/17 10:00 Pulse Rate 98 H 02/23/17 10:00 Respiratory Rate 20 02/23/17 10:00 Blood Pressure 156/71 02/23/17 10:00 O2 Sat by Pulse Oximetry (%) Laboratory Tests 02/22/17 02/23/17 21:00 05:13 POC Glucometer 359 Urine Color Yellow Urine Appearance Clear Urine pH 5.0 Ur Specific [place] 1.015 Urine Protein Negative Urine Glucose (UA) 3+ H Urine Ketones Negative Urine Blood Negative Urine Nitrite Negative Urine Bilirubin Negative Urine Urobilinogen Negative Ur Leukocyte Esterase Negative pending labs pt aox3 in nad ambulating Assessment: 02/23/17 10:18 withdrawal sx;s Plan: cont. detox increase fluids motrin 800mg tid f/up pending labs
--- NOTE | 2017-02-23 10:29 | EKG ---
Test Reason : Blood Pressure : / mmHG Vent. Rate : 088 BPM Atrial Rate : 088 BPM P-R Int : 194 ms QRS Dur : 102 ms QT Int : 408 ms P-R-T Axes : 055 046 049 degrees QTc Int : 493 ms NORMAL SINUS RHYTHM POSSIBLE LEFT ATRIAL ENLARGEMENT PROLONGED QT ABNORMAL ECG WHEN COMPARED WITH ECG OF 09-JAN-2017 18:54, NO SIGNIFICANT CHANGE WAS FOUND Confirmed by PANTERA DOTY MD ([id number]) on 02/23/2017 10:28:47 AM Referred By: Confirmed By:PANTERA DOTY MD
[2017-02-23 10:47] LABS: ALBUMIN 3.1 g/dl (3.4-5.0); ALK PHOS 110 U/L (45-117); ANION GAP 8 (8-16); BILIRUBIN,TOTAL 0.4 mg/dL (0.2-1.0); CALCIUM 8.9 mg/dL (8.5-10.1); CO2 29 mmol/L (21-32); COCKROFT - GAULT 151.46; CREATININE 0.7 mg/dL (0.7-1.3); SGOT/AST 29 U/L (15-37); SGPT/ALT 51 U/L (12-78); TOT PROT 6.4 g/dl (6.4-8.2)
--- NOTE | 2017-02-23 11:14 | CONSULT ---
[facility] Psychiatric Consult - Data Date of interview: 02/23/17 Admission source: [facility] Identifying data: This is 56 years old male with psychiatric hospitalization history intoxicated with: Alcohol, Benzodiazepins, Nicotins, history of Opioids abuse as well Substance Abuse History: - Smoking Cessation. Smoking history: Current every day smoker. Aproximately how many cigarettes per day: 10. Cigars Per Day: 0. Hx Chewing Tobacco Use: No. Initiated information on smoking cessation: Yes. ' Breaking Loose' booklet given: 02/22/17. - Substance & Tx. History. Hx Alcohol Use: Yes. Hx Substance Use: Yes. Substance Use Type: Alcohol, Heroin, Tranquilizers. Hx Substance Use Treatment: Yes. - Substances Abused. Alcohol. Route: Oral. Frequency: Daily. Amount used: 2 pints shon. Age of first use: 15. Date of Last Use: 02/22/17. Alprazolam (Xanax). Route: Oral. Frequency: 3-6 times per week. Amount used: 8 mg. Age of first use: 31. Date of Last Use: 02/22/17. ativan. Route: Oral. Frequency: Daily. Amount used: 8 mg. Age of first use: 31. Date of Last Use: 02/20/17. Diazepam. Route: Oral. Frequency: 3-6 times per week. Amount used: 30 mg. Age of first use: 31. Date of Last Use: 02/21/17 Medical History: HTN, Hypercholeserolemia, s/p Solenectomy, DM-2, HepC+ Psychiatric History: Patient reports history of Depression and Anxiety, reports psychiatric admission on more then 10 years ago, reports taking prior to admission: Seroquel 50mg po qhs. Remeron 30mg po qhs Physical/Sexual Abuse/Trauma History: Denies Additional Comment: Seroquel 50mg po qhs. Remeron 30mg po qhs Mental Status Exam - Mental Status Exam Alert and Oriented to: Person Cognitive Function: Fair Patient Appearance: Unkempt Mood: Sad Affect: Flat Patient Behavior: Sedated Speech Pattern: Delayed Voice Loudness: Mildly Soft/Quiet Thought Process: Circumstantial Thought Disorder: Being Controlled Hallucinations: Denies Suicidal Ideation: Denies Homicidal Ideation: Denies Insight/Judgement: Fair Sleep: Difficulty falling asleep Appetite: Fair Muscle strength/Tone: Mild Hypotonicity Gait/Station: Shuffling Additional Comments: Seroquel 50mg po qhs. Remeron 30mg po qhs Psychiatric Findings - Problem List ([place] 1, 2,3) (1) Alcohol dependence with uncomplicated withdrawal Current Visit: Yes Status: Acute (2) Nicotine dependence Current Visit: Yes Status: Acute Qualifiers: Nicotine product type: cigarettes Substance use status: in withdrawal Qualified Code(s): F17.213 - Nicotine dependence, cigarettes, with withdrawal (3) Sedative, hypnotic or anxiolytic dependence with withdrawal, uncomplicated Current Visit: Yes Status: Acute (4) Opioid dependence on agonist therapy Current Visit: Yes Status: Chronic Comment: 60 mg verification pending (5) Benzodiazepine abuse Current Visit: No Status: Acute (6) Drug-induced mood disorder Current Visit: Yes Status: Acute - Initial Treatment Plan Initial Treatment Plan: Seroquel 50mg po qhs. Remeron 30mg po qhs
--- NOTE | 2017-02-23 11:30 | DS ---
[facility] Detox Discharge Summary Admission Date: 02/22/17 Discharge Date: 02/23/17 - History Present History: Alcohol Dependence - Physical Exam Results Vital Signs: Vital Signs Temperature 97.7 F 02/23/17 10:00 Pulse Rate 98 H 02/23/17 10:00 Respiratory Rate 20 02/23/17 10:00 Blood Pressure 156/71 02/23/17 10:00 O2 Sat by Pulse Oximetry (%) - Treatment Hospital Course: Detox Protocol Followed - Medication Discharge Medications: Ambulatory Orders Mirtazapine [Remeron -] 15 mg PO HS #30 tablet 01/10/17 Quetiapine Fumarate [Seroquel -] 50 mg PO DAILY #30 tablet 01/10/17 Atorvastatin Calcium 10 mg PO HS #30 tab 01/13/17 Glyburide 5 mg PO DAILY #30 tab 01/13/17 Lisinopril 5 mg PO DAILY #30 tab 01/13/17 Metformin HCl [Glucophage] 1,000 mg PO DAILY #30 tab 01/13/17 Mirtazapine [Remeron -] 30 mg PO HS #30 tablet 02/23/17 Quetiapine Fumarate [Seroquel -] 50 mg PO HS #30 tablet 02/23/17 - Diagnosis (1) Alcohol dependence with uncomplicated withdrawal Current Visit: Yes Status: Chronic (2) Nicotine dependence Current Visit: Yes Status: Chronic Qualifiers: Nicotine product type: cigarettes Substance use status: uncomplicated Qualified Code(s): F17.210 - Nicotine dependence, cigarettes, uncomplicated (3) Sedative, hypnotic or anxiolytic dependence with withdrawal, uncomplicated Current Visit: Yes Status: Acute (4) HTN (hypertension) Current Visit: Yes Status: Chronic Qualifiers: Hypertension type: essential hypertension Qualified Code(s): I10 - Essential (primary) hypertension (5) Hypercholesterolemia Current Visit: Yes Status: Chronic - AMA Did Patient Leave Against Medical Advice: No (pt was d/c'ed because of smoking in his room . )
[2017-02-23 11:56] LABS: GLUCOSE,RANDOM 365 mg/dL (74-106)
[2017-02-23] MEDS ORDERED: MIRTAZAPINE 30 MG TABLET (FP) PO SCH (22:00)
[2017-02-23] MEDS ORDERED: QUEtiapine FUMARATE 50 MG TABLET PO SCH (22:00)
[2017-02-24] MEDS ORDERED: diazePAM 5 MG TABLET PO SCH (10:00)
[2017-02-24] MEDS ORDERED: IBUPROFEN 400 MG TABLET (FP) PO PRN (10:19)
[2017-02-26] MEDS ORDERED: diazePAM 5 MG TABLET PO SCH (10:00)
== END 2017-02-23 11:20 | disposition home or self-care (01) | DRG 773 ==
LOC: YASAS 18:15 → Y6N 20:05
PROVIDERS: ADMIT Internal Medicine Addiction Medicine; ATTEND Internal Medicine Addiction Medicine
PROC: HZ2ZZZZ Detoxification Services for Substance Abuse Treatment (ICD-10-PCS; principal; 2017-02-22)
DX: F13.230 Sedative, hypnotic or anxiolytic dependence with withdrawal, uncomplicated (principal); F10.230 Alcohol dependence with withdrawal, uncomplicated; F11.20 Opioid dependence, uncomplicated; F17.210 Nicotine dependence, cigarettes, uncomplicated; F91.8 Other conduct disorders; F19.24 Other psychoactive substance dependence with psychoactive substance-induced mood disorder; I10 Essential (primary) hypertension; E78.5 Hyperlipidemia, unspecified; E11.9 Type 2 diabetes mellitus without complications; B18.2 Chronic viral hepatitis C; E66.9 Obesity, unspecified; Z68.30 Body mass index [BMI] 30.0-30.9, adult; Z79.4 Long term (current) use of insulin; Z79.84 Long term (current) use of oral hypoglycemic drugs
CPT/HCPCS: 36415; 80053; 81003; 85027; 86593; 93005; 93010

== ENCOUNTER 2021-01-19 21:58 | Emergency (ER) | payer OTHER ==
[2021-01-19 22:12] VITALS: TEMP 98.7; BMI 31.9
[2021-01-19] MEDS ORDERED: SODIUM CHLORIDE 1,000 ML IV STA (22:39)
[2021-01-19 23:43] LABS: BASO % 1.1 % (0-2.0); EOS % 3.2 % (0-4.5); HEMATOCRIT 40.5 % (35.4-49); HEMOGLOBIN 13.7 GM/dL (11.7-16.9); LYMPH % 15.9 % (8-40); MCH 30.7 pg (25.7-33.7); MCHC 33.7 g/dl (32.0-35.9); MEAN PLT VOLUME 10.1 fl (7.5-11.1); MONO % 6.5 % (3.8-10.2); NEUT % 73.3 % (42.8-82.8); PLATELET COUNT 230 K/MM3 (134-434); RBC 4.45 M/mm3 (4.00-5.60); RDW 14.5 % (11.9-15.9); WHITE BLOOD COUNT 10.5 K/mm3 (4.0-10.0)
[2021-01-20 00:02] LABS: CHLORIDE 99 mmol/L (98-107); SODIUM 136 mmol/L (136-145)
[2021-01-20 00:03] LABS: CALCIUM 9.8 mg/dL (8.5-10.1)
[2021-01-20 00:04] LABS: ALBUMIN 3.3 g/dl (3.4-5.0); ANION GAP 4 MMOL/L (8-16); BLOOD UREA NITROGEN 11.6 mg/dL (7-18); CO2 34 mmol/L (21-32); GLUCOSE,RANDOM 137 mg/dL (74-106)
[2021-01-20 00:07] LABS: CREATININE 1.1 mg/dL (0.55-1.3); SGOT/AST 42 U/L (15-37); SGPT/ALT 46 U/L (13-61)
[2021-01-20 00:09] LABS: BILIRUBIN,TOTAL 0.6 mg/dL (0.2-1); TOT PROT 7.7 g/dl (6.4-8.2)
[2021-01-20 00:10] LABS: ALK PHOS 129 U/L (45-117)
[2021-01-20 00:26] VITALS: BP 121/79; PULSE 78
[2021-01-20 02:19] LABS: URINE AMPHETAMINES NEGATIVE ng/ml (CUTOFF=500)
[2021-01-20 02:20] LABS: OPIATES, URI NEGATIVE ng/ml (CUTOFF=300); PHENCYCLIDINE,URINE NEGATIVE ng/ml (CUTOFF=25); URINE BARBITURATES NEGATIVE ng/ml (CUTOFF=200)
[2021-01-20] MEDS ORDERED: SODIUM CHLORIDE 0.9% 500 ML INFUS.BAG IV ONE ×2 (02:44→05:24)
[2021-01-20 02:47] LABS: COCAINE, UR NEGATIVE ng/ml (CUTOFF=300); METHADONE, UR POSITIVE ng/ml (CUTOFF=300); URINE BENZODIAZEPINES POSITIVE ng/ml (CUTOFF=200)
[2021-01-20 03:53] LABS: URINE APPEARANCE CLEAR; URINE BILIRUBIN NEGATIVE (NEGATIVE); URINE COLOR YELLOW; URINE GLUCOSE (UA) 3+ (NEGATIVE); URINE KETONE NEGATIVE (NEGATIVE); URINE LEUK ESTERASE NEGATIVE (NEGATIVE); URINE NITRITE NEGATIVE (NEGATIVE); URINE PROTEIN NEGATIVE (NEGATIVE); URINE UROBILINOGEN 0.2 mg/dL (0.2-1.0)
== END 2021-01-20 06:53 | disposition home or self-care (01) ==
LOC: JER 21:58
PROC: 3E0337Z Introduction of Electrolytic and Water Balance Substance into Peripheral Vein, Percutaneous Approach (ICD-10-PCS; principal; 2021-01-19)
DX: F13.10 Sedative, hypnotic or anxiolytic abuse, uncomplicated (principal)
CPT/HCPCS: 36415; 80053; 80307; 81003; 85025; 93005; 93010; 99284-25

== ENCOUNTER 2021-01-20 08:54 | Inpatient (IN) | payer OTHER ==
[2021-01-20 09:20] VITALS: BMI 34.2
[2021-01-20] MEDS ORDERED: IBUPROFEN 400 MG TABLET (FP) PO PRN (10:22)
[2021-01-20] MEDS ORDERED: ONDANSETRON *ODT* 4 MG TABLET SL PRN (10:22)
[2021-01-20] MEDS ORDERED: METHOCARBAMOL 500 MG TABLET PO PRN (10:22)
[2021-01-20] MEDS ORDERED: MAGNESIUM CITRATE 300 ML BOTTLE PO PRN (10:22)
[2021-01-20] MEDS ORDERED: ACETAMINOPHEN 325 MG TABLET (FP) PO PRN ×2 (10:22)
[2021-01-20] MEDS ORDERED: BISMUTH SUBSALICYLATE 262 MG/15 ML BTL PO PRN (10:22)
[2021-01-20] MEDS ORDERED: MAG HYDROX/AL HYDROX/SIMETH 30 ML UNIT-DOSE CUP PO PRN (10:22)
[2021-01-20] MEDS ORDERED: MAGNESIUM HYDROX 2400MG/30ML ORAL SUSPENSION 30 ML CUP PO PRN (10:22)
[2021-01-20] MEDS ORDERED: MENTHOL/PHENOL 1 EACH UD MM PRN (10:22)
[2021-01-20] MEDS ORDERED: NALOXONE (NARCAN) HCL 4 MG/0.1 ML SPRAY NS PRN (10:22)
[2021-01-20] MEDS ORDERED: METHADONE HCL 10 MG TABLET PO ONE (11:18)
[2021-01-20] MEDS ORDERED: METHADONE 80 MG, METHADONE 30 MG PO ONE (11:18)
[2021-01-20] MEDS: metFORMIN HCL 500 MG TABLET (FP) PO SCH (11:23)
[2021-01-20] MEDS: diazePAM 5 MG TABLET PO SCH ×3 (11:23→22:40)
[2021-01-20] MEDS: LISINOPRIL 5 MG TABLET PO SCH (11:23)
[2021-01-20] MEDS: NICOTINE 21 MG/24 HOURS TOPICAL PATCH TD SCH (11:24)
[2021-01-20] MEDS ORDERED: METHADONE HCL 40 MG DISPERSABLE TABLET ONE (12:00)
[2021-01-20] MEDS ORDERED: METHADONE HCL 10 MG TABLET ONE (12:00)
[2021-01-20] MEDS: glyBURIDE 5 MG TABLET PO SCH (13:17)
[2021-01-20] MEDS: hydrOXYzine PAMOATE 25 MG CAPSULE (FP) PO SCH ×3 (13:51→22:42)
[2021-01-20] MEDS: diazePAM 5 MG TABLET PO PRN (13:58)
[2021-01-20] MEDS: NICOTINE POLACRILEX 2 MG GUM BUC PRN ×2 (14:18→22:49)
[2021-01-20 16:05] LABS: HEMATOCRIT 40.8 % (35.4-49); HEMOGLOBIN 13.3 GM/dL (11.7-16.9); MCH 30.3 pg (25.7-33.7); MCHC 32.6 g/dl (32.0-35.9); MEAN CELL VOLUME 92.8 fl (80-96); MEAN PLT VOLUME 11.5 fl (7.5-11.1); PLATELET COUNT 212 K/MM3 (134-434); RBC 4.39 M/mm3 (4.00-5.60); RDW 15.1 % (11.9-15.9)
[2021-01-20 16:11] LABS: BLOOD UREA NITROGEN 11.2 mg/dL (7-18); CALCIUM 8.9 mg/dL (8.5-10.1)
[2021-01-20 16:12] LABS: ALBUMIN 3.2 g/dl (3.4-5.0)
[2021-01-20 16:14] LABS: CREATININE 0.9 mg/dL (0.55-1.3)
[2021-01-20 16:16] LABS: BILIRUBIN,TOTAL 0.5 mg/dL (0.2-1); TOT PROT 7.1 g/dl (6.4-8.2)
[2021-01-20 17:00] LABS: HIV INTERPRETATION NEGATIVE (NEGATIVE)
[2021-01-20] MEDS: INSULIN SLIDING SCALE (NOVOLOG) 1 VIAL SQ SCH (22:35)
[2021-01-20] MEDS ORDERED: INSULIN (NOVOLOG) ASPART 100 UNITS/ML 10ML VIAL ONE (22:38)
[2021-01-20] MEDS: QUEtiapine FUMARATE 200 MG TABLET PO SCH (22:40)
[2021-01-20] MEDS: ATORVASTATIN CA 10 MG TABLET (FP) PO SCH (22:41)
[2021-01-20] MEDS: THIAMINE HCL 100 MG TABLET (FP) PO SCH (22:41)
[2021-01-20] MEDS: MELATONIN 5 MG TABLETS PO SCH (22:42)
[2021-01-21] MEDS ORDERED: METHADONE HCL 40 MG DISPERSABLE TABLET ONE (04:42)
[2021-01-21] MEDS ORDERED: METHADONE HCL 10 MG TABLET ONE (04:42)
[2021-01-21] MEDS: METHADONE 80 MG, METHADONE 30 MG PO SCH (05:50)
[2021-01-21] MEDS: diazePAM 5 MG TABLET PO SCH ×4 (05:51→22:25)
[2021-01-21] MEDS: hydrOXYzine PAMOATE 25 MG CAPSULE (FP) PO SCH ×5 (05:52→22:25)
[2021-01-21] MEDS ORDERED: METHADONE 80 MG, METHADONE 30 MG PO SCH (06:00)
[2021-01-21] MEDS ORDERED: METHADONE HCL 10 MG TABLET PO SCH (06:00)
[2021-01-21] MEDS: INSULIN SLIDING SCALE (NOVOLOG) 1 VIAL SQ SCH ×4 (07:40→22:34)
[2021-01-21] MEDS: glyBURIDE 5 MG TABLET PO SCH (07:42)
[2021-01-21] MEDS: metFORMIN HCL 500 MG TABLET (FP) PO SCH (07:42)
[2021-01-21] MEDS: NICOTINE POLACRILEX 2 MG GUM BUC PRN (08:47)
[2021-01-21] MEDS: PRENATAL VITAMINS W/ FOLIC ACID TABLET (FP) PO SCH (10:11)
[2021-01-21] MEDS: NICOTINE 21 MG/24 HOURS TOPICAL PATCH TD SCH (10:11)
[2021-01-21] MEDS: QUEtiapine FUMARATE 50 MG TABLET PO SCH (10:14)
[2021-01-21] MEDS: LISINOPRIL 5 MG TABLET PO SCH (10:14)
[2021-01-21] MEDS ORDERED: LACTULOSE 20 GM/30 ML UDC (FOR ORAL USE ONLY) PO ONE (11:05)
[2021-01-21] MEDS: diazePAM 5 MG TABLET PO PRN (12:32)
[2021-01-21] MEDS: LACTULOSE 20 GM/30 ML UDC (FOR ORAL USE ONLY) PO SCH ×3 (14:48→22:27)
[2021-01-21] MEDS ORDERED: INSULIN (NOVOLOG) ASPART 100 UNITS/ML 10ML VIAL ONE ×2 (16:49→22:33)
[2021-01-21] MEDS: ATORVASTATIN CA 10 MG TABLET (FP) PO SCH (22:24)
[2021-01-21] MEDS: QUEtiapine FUMARATE 200 MG TABLET PO SCH (22:25)
[2021-01-21] MEDS: THIAMINE HCL 100 MG TABLET (FP) PO SCH (22:25)
[2021-01-21] MEDS: MELATONIN 5 MG TABLETS PO SCH (22:28)
[2021-01-21] MEDS: INSULIN (LEVEMIR) 100 UNITS/ML UNITS SQ SCH (22:34)
[2021-01-22] MEDS ORDERED: METHADONE HCL 40 MG DISPERSABLE TABLET ONE (03:54)
[2021-01-22] MEDS ORDERED: METHADONE HCL 10 MG TABLET ONE (03:54)
[2021-01-22] MEDS: hydrOXYzine PAMOATE 25 MG CAPSULE (FP) PO SCH ×5 (05:51→22:10)
[2021-01-22] MEDS: diazePAM 5 MG TABLET PO SCH ×3 (05:52→22:09)
[2021-01-22] MEDS: METHADONE 80 MG, METHADONE 30 MG PO SCH (05:53)
[2021-01-22] MEDS: metFORMIN HCL 500 MG TABLET (FP) PO SCH (06:55)
[2021-01-22] MEDS: glyBURIDE 5 MG TABLET PO SCH (06:55)
[2021-01-22] MEDS: INSULIN (LEVEMIR) 100 UNITS/ML UNITS SQ SCH ×2 (07:11→22:14)
[2021-01-22] MEDS: INSULIN SLIDING SCALE (NOVOLOG) 1 VIAL SQ SCH ×4 (07:12→22:14)
[2021-01-22] MEDS: NICOTINE 21 MG/24 HOURS TOPICAL PATCH TD SCH (10:23)
[2021-01-22] MEDS: PRENATAL VITAMINS W/ FOLIC ACID TABLET (FP) PO SCH (10:23)
[2021-01-22] MEDS: LISINOPRIL 5 MG TABLET PO SCH (10:23)
[2021-01-22] MEDS: QUEtiapine FUMARATE 50 MG TABLET PO SCH (10:23)
[2021-01-22] MEDS: LACTULOSE 20 GM/30 ML UDC (FOR ORAL USE ONLY) PO SCH ×4 (10:24→22:12)
[2021-01-22] MEDS: NICOTINE POLACRILEX 2 MG GUM BUC PRN ×2 (10:27→17:18)
[2021-01-22] MEDS ORDERED: INSULIN (NOVOLOG) ASPART 100 UNITS/ML 10ML VIAL ONE (16:45)
[2021-01-22] MEDS: MELATONIN 5 MG TABLETS PO SCH (22:08)
[2021-01-22] MEDS: QUEtiapine FUMARATE 200 MG TABLET PO SCH (22:09)
[2021-01-22] MEDS: THIAMINE HCL 100 MG TABLET (FP) PO SCH (22:09)
[2021-01-22] MEDS: ATORVASTATIN CA 10 MG TABLET (FP) PO SCH (22:09)
[2021-01-23] MEDS ORDERED: METHADONE HCL 10 MG TABLET ONE (03:56)
[2021-01-23] MEDS ORDERED: METHADONE HCL 40 MG DISPERSABLE TABLET ONE (03:56)
[2021-01-23] MEDS: METHADONE 80 MG, METHADONE 30 MG PO SCH (05:54)
[2021-01-23] MEDS: hydrOXYzine PAMOATE 25 MG CAPSULE (FP) PO SCH ×5 (05:54→22:07)
[2021-01-23] MEDS: diazePAM 5 MG TABLET PO SCH ×2 (05:55→17:47)
[2021-01-23] MEDS: glyBURIDE 5 MG TABLET PO SCH (05:59)
[2021-01-23] MEDS: metFORMIN HCL 500 MG TABLET (FP) PO SCH (06:00)
[2021-01-23] MEDS: INSULIN (LEVEMIR) 100 UNITS/ML UNITS SQ SCH ×2 (06:02→22:11)
[2021-01-23] MEDS: INSULIN SLIDING SCALE (NOVOLOG) 1 VIAL SQ SCH ×4 (06:03→22:11)
[2021-01-23] MEDS: PRENATAL VITAMINS W/ FOLIC ACID TABLET (FP) PO SCH (10:45)
[2021-01-23] MEDS: LACTULOSE 20 GM/30 ML UDC (FOR ORAL USE ONLY) PO SCH ×4 (10:45→22:08)
[2021-01-23] MEDS: QUEtiapine FUMARATE 50 MG TABLET PO SCH (10:45)
[2021-01-23] MEDS: LISINOPRIL 5 MG TABLET PO SCH (10:45)
[2021-01-23] MEDS: NICOTINE 21 MG/24 HOURS TOPICAL PATCH TD SCH (10:45)
[2021-01-23] MEDS ORDERED: INSULIN (NOVOLOG) ASPART 100 UNITS/ML 10ML VIAL ONE ×3 (11:24→22:07)
[2021-01-23 11:36] LABS: HEMATOCRIT 37.5 % (35.4-49); HEMOGLOBIN 12.6 GM/dL (11.7-16.9); MCH 30.8 pg (25.7-33.7); MCHC 33.5 g/dl (32.0-35.9); PLATELET COUNT 237 K/MM3 (134-434); RBC 4.07 M/mm3 (4.00-5.60); RDW 14.3 % (11.9-15.9); WHITE BLOOD COUNT 11.5 K/mm3 (4.0-10.0)
[2021-01-23 11:41] LABS: CALCIUM 8.7 mg/dL (8.5-10.1)
[2021-01-23 11:42] LABS: ALBUMIN 2.9 g/dl (3.4-5.0); INR 1.06 (0.83-1.09); PROTHROMBIN TIME (PATIENT) 12.8 SEC (9.7-13.0)
[2021-01-23 11:45] LABS: CREATININE 0.8 mg/dL (0.55-1.3)
[2021-01-23 11:47] LABS: BILIRUBIN,TOTAL 0.5 mg/dL (0.2-1); TOT PROT 6.6 g/dl (6.4-8.2)
[2021-01-23] MEDS: NICOTINE POLACRILEX 2 MG GUM BUC PRN ×2 (12:36→17:48)
[2021-01-23 14:07] LABS: SARS-CoV-2 NAA Not Detected (Not Detected)
[2021-01-23] MEDS: QUEtiapine FUMARATE 200 MG TABLET PO SCH (22:07)
[2021-01-23] MEDS: THIAMINE HCL 100 MG TABLET (FP) PO SCH (22:07)
[2021-01-23] MEDS: ATORVASTATIN CA 10 MG TABLET (FP) PO SCH (22:07)
[2021-01-23] MEDS: MELATONIN 5 MG TABLETS PO SCH (22:12)
[2021-01-24] MEDS ORDERED: METHADONE HCL 40 MG DISPERSABLE TABLET ONE (04:23)
[2021-01-24] MEDS ORDERED: METHADONE HCL 10 MG TABLET ONE (04:23)
[2021-01-24] MEDS ORDERED: diazePAM 5 MG TABLET PO ONE (06:00)
[2021-01-24] MEDS: METHADONE 80 MG, METHADONE 30 MG PO SCH (06:04)
[2021-01-24] MEDS: glyBURIDE 5 MG TABLET PO SCH (06:05)
[2021-01-24] MEDS: metFORMIN HCL 500 MG TABLET (FP) PO SCH (06:05)
[2021-01-24] MEDS: hydrOXYzine PAMOATE 25 MG CAPSULE (FP) PO SCH (06:05)
[2021-01-24] MEDS: INSULIN (LEVEMIR) 100 UNITS/ML UNITS SQ SCH (06:06)
[2021-01-24] MEDS ORDERED: INSULIN (NOVOLOG) ASPART 100 UNITS/ML 10ML VIAL ONE (06:10)
[2021-01-24] MEDS: INSULIN SLIDING SCALE (NOVOLOG) 1 VIAL SQ SCH (06:13)
[2021-01-24 11:47] VITALS: BP 160/71; PULSE 78; TEMP 98.1
== END 2021-01-24 08:45 | disposition home or self-care (01) | DRG 773 ==
LOC: YASAS 08:54 → Y6N 09:37
PROVIDERS: ADMIT Allergy & Immunology; ATTEND Allergy & Immunology
PROC: HZ2ZZZZ Detoxification Services for Substance Abuse Treatment (ICD-10-PCS; principal; 2021-01-20)
DX: F10.230 Alcohol dependence with withdrawal, uncomplicated (principal); F11.23 Opioid dependence with withdrawal; F13.230 Sedative, hypnotic or anxiolytic dependence with withdrawal, uncomplicated; F12.20 Cannabis dependence, uncomplicated; F17.210 Nicotine dependence, cigarettes, uncomplicated; F33.1 Major depressive disorder, recurrent, moderate; F19.282 Other psychoactive substance dependence with psychoactive substance-induced sleep disorder; F19.24 Other psychoactive substance dependence with psychoactive substance-induced mood disorder; I10 Essential (primary) hypertension; G31.84 Mild cognitive impairment of uncertain or unknown etiology; E78.5 Hyperlipidemia, unspecified; R60.0 Localized edema; R79.89 Other specified abnormal findings of blood chemistry; Z90.81 Acquired absence of spleen; Z88.8 Allergy status to other drugs, medicaments and biological substances
CPT/HCPCS: 36415; 80053; 82140; 82962; 85027; 85610; 86780; 86803; 87389; C9803; U0003; U0005

== ENCOUNTER 2022-06-09 18:17 | Inpatient (IN) | payer OTHER ==
[2022-06-09] MEDS ORDERED: IBUPROFEN 400 MG TABLET (FP) PO PRN (23:48)
[2022-06-09] MEDS ORDERED: MAG HYDROX/AL HYDROX/SIMETH 30 ML UNIT-DOSE CUP PO PRN (23:48)
[2022-06-09] MEDS ORDERED: MAGNESIUM CITRATE 300 ML BOTTLE PO PRN (23:48)
[2022-06-09] MEDS ORDERED: P-EPHED 60MG/TRIPROLIDI 2.5MG TABLET PO PRN (23:48)
[2022-06-09] MEDS ORDERED: DICYCLOMINE HCL 10 MG CAPSULE PO PRN (23:48)
[2022-06-09] MEDS ORDERED: guaiFENesin 200 MG/10 ML 10 ML UNIT-DOSE CUPS PO PRN (23:48)
[2022-06-09] MEDS ORDERED: ONDANSETRON *ODT* 4 MG TABLET SL PRN (23:48)
[2022-06-09] MEDS ORDERED: ACETAMINOPHEN 325 MG TABLET (FP) PO PRN (23:48)
[2022-06-09] MEDS ORDERED: LOPERAMIDE HCL 2 MG CAPSULE PO PRN (23:48)
[2022-06-09] MEDS ORDERED: IBUPROFEN 600 MG TABLET (FP) PO PRN (23:48)
[2022-06-09] MEDS ORDERED: BENZOCAINE/MENTHOL (CHLORASEPTIC ) LOZENGE MM PRN (23:48)
[2022-06-09] MEDS ORDERED: MAGNESIUM HYDROX 2400MG/30ML ORAL SUSPENSION 30 ML CUP PO PRN (23:48)
[2022-06-09] MEDS ORDERED: BISMUTH SUBSALICYLATE 524 MG/30 ML PO PRN (23:48)
[2022-06-10] MEDS: INSULIN SLIDING SCALE (NOVOLOG) 1 VIAL SQ SCH ×5 (02:57→21:45)
[2022-06-10] MEDS: diazePAM 5 MG TABLET PO PRN ×3 (03:01→19:33)
[2022-06-10] MEDS: ACETAMINOPHEN 325 MG TABLET (FP) PO PRN ×2 (03:02→19:31)
[2022-06-10] MEDS: hydrOXYzine PAMOATE 25 MG CAPSULE (FP) PO PRN (03:04)
[2022-06-10] MEDS: diazePAM 5 MG TABLET PO SCH ×4 (06:22→22:10)
[2022-06-10] MEDS: VITAMINS A AND D TOPICAL OINTMENT 60 GM TUBE TP SCH ×4 (06:27→23:20)
[2022-06-10 09:35] LABS: HEMATOCRIT 33.8 % (35.4-49); HEMOGLOBIN 10.8 GM/dL (11.7-16.9); MCH 26.3 pg (25.7-33.7); MEAN CELL VOLUME 82.2 fl (80-96); MEAN PLT VOLUME 11.3 fl (7.5-11.1); PLATELET COUNT 278 10^3/uL (134-434); RBC 4.12 M/mm3 (4.00-5.60); RDW 18.7 % (11.9-15.9); WHITE BLOOD COUNT 12.2 K/mm3 (4.0-10.0)
[2022-06-10 09:52] LABS: ALBUMIN 2.4 g/dl (3.4-5.0); CALCIUM 8.9 mg/dL (8.5-10.1)
[2022-06-10 09:53] LABS: BLOOD UREA NITROGEN 24.3 mg/dL (7-18)
[2022-06-10 09:55] LABS: CREATININE 0.9 mg/dL (0.55-1.3)
[2022-06-10 09:57] LABS: BILIRUBIN,TOTAL 0.2 mg/dL (0.2-1); TOT PROT 6.4 g/dl (6.4-8.2)
[2022-06-10] MEDS ORDERED: methaDONE HCL 40 MG DISPERSABLE TABLET PO ONE (10:00)
[2022-06-10] MEDS ORDERED: metFORMIN HCL 500 MG TABLET (FP) PO SCH ×2 (10:00→17:10)
[2022-06-10] MEDS: PRENATAL VITAMINS W/ FOLIC ACID TABLET (FP) PO SCH (10:43)
[2022-06-10] MEDS: MUPIROCIN 2% TOPICAL OINTMENT 22 GM TUBE TP SCH ×2 (12:07→21:46)
[2022-06-10] MEDS: metFORMIN HCL 500 MG TABLET (FP) PO SCH (17:15)
[2022-06-10] MEDS: INSULIN (LEVEMIR) 100 UNITS/ML UNITS SQ SCH (21:39)
[2022-06-10] MEDS: MIRTAZAPINE 15 MG TABLET (FP) PO SCH (22:10)
[2022-06-10] MEDS: MELATONIN 5 MG TABLETS PO SCH (22:10)
[2022-06-10] MEDS: THIAMINE HCL 100 MG TABLET (FP) PO SCH (22:10)
[2022-06-10] MEDS: ATORVASTATIN CA 10 MG TABLET (FP) PO SCH (22:10)
[2022-06-11] MEDS: diazePAM 5 MG TABLET PO PRN ×3 (03:40→17:10)
[2022-06-11] MEDS ORDERED: INSULIN SLIDING SCALE (NOVOLOG) 1 VIAL SQ ONE (05:50)
[2022-06-11] MEDS: diazePAM 5 MG TABLET PO SCH ×3 (05:53→22:22)
[2022-06-11] MEDS: hydrOXYzine PAMOATE 25 MG CAPSULE (FP) PO PRN (05:53)
[2022-06-11] MEDS ORDERED: methaDONE HCL 40 MG DISPERSABLE TABLET PO SCH (06:00)
[2022-06-11] MEDS ORDERED: methaDONE 80 MG, methaDONE 10 MG PO ONE (06:00)
[2022-06-11] MEDS: INSULIN SLIDING SCALE (NOVOLOG) 1 VIAL SQ SCH ×4 (07:01→22:29)
[2022-06-11] MEDS: metFORMIN HCL 500 MG TABLET (FP) PO SCH ×2 (07:01→17:12)
[2022-06-11] MEDS: VITAMINS A AND D TOPICAL OINTMENT 60 GM TUBE TP SCH ×4 (07:02→23:35)
[2022-06-11] MEDS: MUPIROCIN 2% TOPICAL OINTMENT 22 GM TUBE TP SCH ×2 (10:37→22:22)
[2022-06-11] MEDS: PRENATAL VITAMINS W/ FOLIC ACID TABLET (FP) PO SCH (10:37)
[2022-06-11] MEDS: ACETAMINOPHEN 325 MG TABLET (FP) PO PRN (11:11)
[2022-06-11] MEDS: MELATONIN 5 MG TABLETS PO SCH (22:23)
[2022-06-11] MEDS: ATORVASTATIN CA 10 MG TABLET (FP) PO SCH (22:23)
[2022-06-11] MEDS: THIAMINE HCL 100 MG TABLET (FP) PO SCH (22:23)
[2022-06-11] MEDS: MIRTAZAPINE 15 MG TABLET (FP) PO SCH (22:23)
[2022-06-11] MEDS: INSULIN (LEVEMIR) 100 UNITS/ML UNITS SQ SCH (22:29)
[2022-06-12] MEDS: diazePAM 5 MG TABLET PO PRN ×3 (00:41→20:09)
[2022-06-12] MEDS ORDERED: methaDONE HCL 40 MG DISPERSABLE TABLET PO ONE (06:00)
[2022-06-12] MEDS ORDERED: methaDONE 80 MG, methaDONE 20 MG PO ONE (06:00)
[2022-06-12] MEDS: diazePAM 5 MG TABLET PO SCH ×2 (06:11→17:37)
[2022-06-12] MEDS: metFORMIN HCL 500 MG TABLET (FP) PO SCH ×2 (06:11→17:37)
[2022-06-12] MEDS: VITAMINS A AND D TOPICAL OINTMENT 60 GM TUBE TP SCH ×3 (06:12→18:32)
[2022-06-12] MEDS: INSULIN SLIDING SCALE (NOVOLOG) 1 VIAL SQ SCH ×4 (06:16→22:18)
[2022-06-12] MEDS: MUPIROCIN 2% TOPICAL OINTMENT 22 GM TUBE TP SCH ×2 (10:31→22:15)
[2022-06-12] MEDS: PRENATAL VITAMINS W/ FOLIC ACID TABLET (FP) PO SCH (10:31)
[2022-06-12] MEDS: ATORVASTATIN CA 10 MG TABLET (FP) PO SCH (22:13)
[2022-06-12] MEDS: MIRTAZAPINE 15 MG TABLET (FP) PO SCH (22:13)
[2022-06-12] MEDS: THIAMINE HCL 100 MG TABLET (FP) PO SCH (22:14)
[2022-06-12] MEDS: hydrOXYzine PAMOATE 25 MG CAPSULE (FP) PO PRN (22:14)
[2022-06-12] MEDS: MELATONIN 5 MG TABLETS PO SCH (22:14)
[2022-06-12] MEDS: INSULIN (LEVEMIR) 100 UNITS/ML UNITS SQ SCH (22:17)
[2022-06-13] MEDS: VITAMINS A AND D TOPICAL OINTMENT 60 GM TUBE TP SCH ×4 (01:08→18:55)
[2022-06-13] MEDS ORDERED: diazePAM 5 MG TABLET PO ONE (06:00)
[2022-06-13] MEDS ORDERED: methaDONE HCL 40 MG DISPERSABLE TABLET PO SCH (06:00)
[2022-06-13] MEDS: metFORMIN HCL 500 MG TABLET (FP) PO SCH ×2 (06:23→18:33)
[2022-06-13] MEDS: INSULIN SLIDING SCALE (NOVOLOG) 1 VIAL SQ SCH ×4 (06:27→22:09)
[2022-06-13] MEDS: MUPIROCIN 2% TOPICAL OINTMENT 22 GM TUBE TP SCH ×2 (10:15→22:20)
[2022-06-13] MEDS: PRENATAL VITAMINS W/ FOLIC ACID TABLET (FP) PO SCH (10:15)
[2022-06-13] MEDS: hydrOXYzine PAMOATE 25 MG CAPSULE (FP) PO PRN ×3 (10:17→22:09)
[2022-06-13] MEDS: ACETAMINOPHEN 325 MG TABLET (FP) PO PRN (20:28)
[2022-06-13] MEDS: MELATONIN 5 MG TABLETS PO SCH (22:08)
[2022-06-13] MEDS: MIRTAZAPINE 15 MG TABLET (FP) PO SCH (22:09)
[2022-06-13] MEDS: THIAMINE HCL 100 MG TABLET (FP) PO SCH (22:09)
[2022-06-13] MEDS: INSULIN (LEVEMIR) 100 UNITS/ML UNITS SQ SCH (22:10)
[2022-06-13] MEDS: ATORVASTATIN CA 10 MG TABLET (FP) PO SCH (22:12)
[2022-06-14] MEDS: VITAMINS A AND D TOPICAL OINTMENT 60 GM TUBE TP SCH ×4 (00:06→17:16)
[2022-06-14] MEDS: metFORMIN HCL 500 MG TABLET (FP) PO SCH ×2 (06:47→17:10)
[2022-06-14] MEDS: INSULIN SLIDING SCALE (NOVOLOG) 1 VIAL SQ SCH ×4 (06:48→22:22)
[2022-06-14] MEDS: PRENATAL VITAMINS W/ FOLIC ACID TABLET (FP) PO SCH (10:21)
[2022-06-14] MEDS: MUPIROCIN 2% TOPICAL OINTMENT 22 GM TUBE TP SCH ×2 (10:22→22:18)
[2022-06-14] MEDS: CLINDAMYCIN HCL 150 MG CAPSULE (FP) PO SCH ×3 (13:02→23:02)
[2022-06-14] MEDS: LISINOPRIL 10 MG TABLET PO SCH (13:03)
[2022-06-14] MEDS: ASPIRIN 81 MG CHEWABLE TABLETS PO SCH (13:47)
[2022-06-14] MEDS: hydrOXYzine PAMOATE 25 MG CAPSULE (FP) PO PRN (14:27)
[2022-06-14] MEDS: CLINDAMYCIN PHOSPHATE 1% TOPICAL GEL 30 GM TUBE TP SCH ×2 (14:38→22:18)
[2022-06-14] MEDS: ATORVASTATIN CA 10 MG TABLET (FP) PO SCH (22:18)
[2022-06-14] MEDS: THIAMINE HCL 100 MG TABLET (FP) PO SCH (22:18)
[2022-06-14] MEDS: MIRTAZAPINE 15 MG TABLET (FP) PO SCH (22:18)
[2022-06-14] MEDS: MELATONIN 5 MG TABLETS PO SCH (22:22)
[2022-06-14] MEDS: INSULIN (LEVEMIR) 100 UNITS/ML UNITS SQ SCH (22:22)
[2022-06-15] MEDS: CLINDAMYCIN HCL 150 MG CAPSULE (FP) PO SCH ×2 (06:05→13:43)
[2022-06-15] MEDS: metFORMIN HCL 500 MG TABLET (FP) PO SCH (06:05)
[2022-06-15] MEDS: VITAMINS A AND D TOPICAL OINTMENT 60 GM TUBE TP SCH ×2 (06:06→13:43)
[2022-06-15] MEDS: hydrOXYzine PAMOATE 25 MG CAPSULE (FP) PO PRN ×2 (06:06→09:33)
[2022-06-15] MEDS: INSULIN SLIDING SCALE (NOVOLOG) 1 VIAL SQ SCH ×2 (06:11→11:32)
[2022-06-15 09:07] VITALS: BP 148/73; PULSE 92; RESP 16; TEMP 97.5
[2022-06-15] MEDS: PRENATAL VITAMINS W/ FOLIC ACID TABLET (FP) PO SCH (09:31)
[2022-06-15] MEDS: ASPIRIN 81 MG CHEWABLE TABLETS PO SCH (09:31)
[2022-06-15] MEDS: LISINOPRIL 10 MG TABLET PO SCH (09:31)
[2022-06-15] MEDS: CLINDAMYCIN PHOSPHATE 1% TOPICAL GEL 30 GM TUBE TP SCH (10:11)
[2022-06-15] MEDS: MUPIROCIN 2% TOPICAL OINTMENT 22 GM TUBE TP SCH (11:09)
== END 2022-06-15 18:47 | disposition home or self-care (01) | DRG 773 ==
LOC: YASAS 18:17 → Y3N 23:44
PROVIDERS: ADMIT Allergy & Immunology; ATTEND Family Medicine Addiction Medicine
PROC: HZ2ZZZZ Detoxification Services for Substance Abuse Treatment (ICD-10-PCS; principal; 2022-06-09)
DX: F13.230 Sedative, hypnotic or anxiolytic dependence with withdrawal, uncomplicated (principal); F11.20 Opioid dependence, uncomplicated; F10.10 Alcohol abuse, uncomplicated; F12.20 Cannabis dependence, uncomplicated; F17.210 Nicotine dependence, cigarettes, uncomplicated; F19.282 Other psychoactive substance dependence with psychoactive substance-induced sleep disorder; F19.24 Other psychoactive substance dependence with psychoactive substance-induced mood disorder; F33.1 Major depressive disorder, recurrent, moderate; E78.5 Hyperlipidemia, unspecified; E11.9 Type 2 diabetes mellitus without complications; Z79.4 Long term (current) use of insulin; I10 Essential (primary) hypertension; L97.521 Non-pressure chronic ulcer of other part of left foot limited to breakdown of skin; L03.116 Cellulitis of left lower limb; L97.518 Non-pressure chronic ulcer of other part of right foot with other specified severity; E11.622 Type 2 diabetes mellitus with other skin ulcer; Z89.421 Acquired absence of other right toe(s); Z89.411 Acquired absence of right great toe
CPT/HCPCS: 36415; 73630-TC-LT; 80053; 82962; 85027; 86780; 93005; 93010; C9803-CS; U0003; U0005

== ENCOUNTER 2022-06-15 12:00 | Emergency (ER) | payer OTHER ==
[2022-06-15 13:07] VITALS: BP 139/70; PULSE 78; RESP 18; TEMP 98.1; BMI 34.4
[2022-06-15] MEDS ORDERED: CLINDAMYCIN HCL 150 MG CAPSULE (FP) PO ONE (14:10)
[2022-06-15] MEDS ORDERED: CLINDAMYCIN HCL 150 MG CAPSULE (FP) ONE (14:50)
== END 2022-06-15 15:25 | disposition home or self-care (01) ==
LOC: JER 12:00
DX: L97.529 Non-pressure chronic ulcer of other part of left foot with unspecified severity (principal)
CPT/HCPCS: 99283-25

== ENCOUNTER 2022-11-29 18:46 | Inpatient (IN) | payer OTHER ==
[2022-11-29 20:03] VITALS: BMI 33.6
[2022-11-29] MEDS ORDERED: P-EPHED 60MG/TRIPROLIDI 2.5MG TABLET PO PRN (20:32)
[2022-11-29] MEDS ORDERED: DICYCLOMINE HCL 10 MG CAPSULE PO PRN (20:32)
[2022-11-29] MEDS ORDERED: LOPERAMIDE HCL 2 MG CAPSULE PO PRN (20:32)
[2022-11-29] MEDS ORDERED: IBUPROFEN 600 MG TABLET (FP) PO PRN (20:32)
[2022-11-29] MEDS ORDERED: ONDANSETRON *ODT* 4 MG TABLET SL PRN (20:32)
[2022-11-29] MEDS ORDERED: guaiFENesin 200 MG/10 ML 10 ML UNIT-DOSE CUPS PO PRN (20:32)
[2022-11-29] MEDS ORDERED: MAGNESIUM HYDROX 2400MG/30ML ORAL SUSPENSION 30 ML CUP PO PRN (20:32)
[2022-11-29] MEDS ORDERED: MELATONIN 5 MG TABLETS PO PRN (20:32)
[2022-11-29] MEDS ORDERED: BENZOCAINE/MENTHOL (CHLORASEPTIC ) LOZENGE MM PRN (20:32)
[2022-11-29] MEDS ORDERED: IBUPROFEN 400 MG TABLET (FP) PO PRN (20:32)
[2022-11-29] MEDS ORDERED: BISMUTH SUBSALICYLATE 524 MG/30 ML PO PRN (20:32)
[2022-11-29] MEDS ORDERED: MAG HYDROX/AL HYDROX/SIMETH 30 ML UNIT-DOSE CUP PO PRN (20:32)
[2022-11-29] MEDS ORDERED: POLYETHYLENE GLYCOL (HEALTHYLAX) 3350 17 GM PACKET PO PRN (20:32)
[2022-11-29] MEDS ORDERED: ACETAMINOPHEN 325 MG TABLET (FP) PO PRN (20:32)
[2022-11-29] MEDS ORDERED: chlordiazePOXIDE HCL 25 MG CAPSULE ONE (20:46)
[2022-11-29] MEDS ORDERED: ONDANSETRON *ODT* 4 MG TABLET ONE (20:47)
[2022-11-29] MEDS: chlordiazePOXIDE HCL 25 MG CAPSULE PO PRN (20:55)
[2022-11-29] MEDS: LISINOPRIL 5 MG TABLET PO SCH (21:42)
[2022-11-29] MEDS: ASPIRIN 81 MG CHEWABLE TABLETS PO SCH (21:42)
[2022-11-29] MEDS ORDERED: LISINOPRIL 10 MG TABLET ONE (21:43)
[2022-11-29] MEDS ORDERED: ASPIRIN 81 MG CHEWABLE TABLETS ONE (21:44)
[2022-11-29] MEDS: INSULIN SLIDING SCALE (NOVOLOG) 1 VIAL SQ SCH (22:06)
[2022-11-29] MEDS ORDERED: INSULIN (NOVOLOG) ASPART 100 UNITS/ML 10ML VIAL ONE (22:09)
[2022-11-29] MEDS: ATORVASTATIN CA 10 MG TABLET (FP) PO SCH (22:10)
[2022-11-29] MEDS: THIAMINE HCL 100 MG TABLET (FP) PO SCH (22:10)
[2022-11-29] MEDS: chlordiazePOXIDE HCL 25 MG CAPSULE PO SCH (22:54)
[2022-11-30] MEDS: chlordiazePOXIDE HCL 25 MG CAPSULE PO SCH ×2 (05:00→10:10)
[2022-11-30] MEDS: metFORMIN HCL 500 MG TABLET (FP) PO SCH ×2 (06:25→17:08)
[2022-11-30] MEDS: INSULIN SLIDING SCALE (NOVOLOG) 1 VIAL SQ SCH ×4 (06:25→22:22)
[2022-11-30] MEDS ORDERED: INSULIN (NOVOLOG) ASPART 100 UNITS/ML 10ML VIAL ONE ×3 (06:27→17:05)
[2022-11-30] MEDS: chlordiazePOXIDE HCL 25 MG CAPSULE PO PRN (07:46)
[2022-11-30] MEDS ORDERED: DOXYCYCLINE HYCLATE 100 MG CAPSULE PO SCH (10:00)
[2022-11-30] MEDS: LISINOPRIL 5 MG TABLET PO SCH (10:09)
[2022-11-30] MEDS: ASPIRIN 81 MG CHEWABLE TABLETS PO SCH (10:09)
[2022-11-30] MEDS: methaDONE HCL 40 MG DISPERSABLE TABLET PO SCH (10:09)
[2022-11-30] MEDS: PRENATAL VITAMINS W/ FOLIC ACID TABLET (FP) PO SCH (10:09)
[2022-11-30] MEDS: LORazepam 2 MG TABLET PO SCH ×3 (11:56→22:13)
[2022-11-30 12:27] LABS: HEMATOCRIT 35.7 % (35.4-49); HEMOGLOBIN 11.9 GM/dL (11.7-16.9); MCH 29.3 pg (25.7-33.7); MCHC 33.5 g/dl (32.0-35.9); MEAN CELL VOLUME 87.7 fl (80-96); MEAN PLT VOLUME 10.6 fl (7.5-11.1); PLATELET COUNT 356 10^3/uL (134-434); RBC 4.06 M/mm3 (4.00-5.60); RDW 15.4 % (11.9-15.9); WHITE BLOOD COUNT 9.9 K/mm3 (4.0-10.0)
[2022-11-30 12:35] LABS: ALBUMIN 3.2 g/dl (3.4-5.0); BLOOD UREA NITROGEN 6.7 mg/dL (7-18)
[2022-11-30 12:37] LABS: CALCIUM 9.6 mg/dL (8.5-10.1)
[2022-11-30 12:38] LABS: CREATININE 0.8 mg/dL (0.55-1.3)
[2022-11-30 12:40] LABS: TOT PROT 7.7 g/dl (6.4-8.2)
[2022-11-30 12:43] LABS: BILIRUBIN,TOTAL 0.7 mg/dL (0.2-1)
[2022-11-30] MEDS: LORazepam 1 MG TABLET PO PRN (13:18)
[2022-11-30] MEDS: DOXYCYCLINE HYCLATE 100 MG TABLET PO SCH (17:08)
[2022-11-30] MEDS: THIAMINE HCL 100 MG TABLET (FP) PO SCH (22:13)
[2022-11-30] MEDS: ATORVASTATIN CA 10 MG TABLET (FP) PO SCH (22:13)
[2022-11-30] MEDS: ACETAMINOPHEN 325 MG TABLET (FP) PO PRN (22:18)
[2022-11-30] MEDS: INSULIN (LEVEMIR) 100 UNITS/ML UNITS SQ SCH (22:21)
[2022-12-01] MEDS ORDERED: chlordiazePOXIDE HCL 25 MG CAPSULE PO SCH (05:00)
[2022-12-01] MEDS: LORazepam 2 MG TABLET PO SCH ×4 (05:15→22:06)
[2022-12-01] MEDS: methaDONE HCL 40 MG DISPERSABLE TABLET PO SCH (05:15)
[2022-12-01] MEDS: metFORMIN HCL 500 MG TABLET (FP) PO SCH ×2 (06:31→16:56)
[2022-12-01] MEDS: INSULIN SLIDING SCALE (NOVOLOG) 1 VIAL SQ SCH ×4 (08:00→22:03)
[2022-12-01] MEDS ORDERED: INSULIN (NOVOLOG) ASPART 100 UNITS/ML 10ML VIAL ONE ×4 (08:06→22:05)
[2022-12-01] MEDS: DOXYCYCLINE HYCLATE 100 MG TABLET PO SCH ×2 (10:08→17:02)
[2022-12-01] MEDS: ASPIRIN 81 MG CHEWABLE TABLETS PO SCH (10:08)
[2022-12-01] MEDS: PRENATAL VITAMINS W/ FOLIC ACID TABLET (FP) PO SCH (10:09)
[2022-12-01] MEDS: LISINOPRIL 5 MG TABLET PO SCH (10:09)
[2022-12-01] MEDS: LORazepam 1 MG TABLET PO PRN ×2 (13:33→20:36)
[2022-12-01] MEDS: ATORVASTATIN CA 10 MG TABLET (FP) PO SCH (22:06)
[2022-12-01] MEDS: MIRTAZAPINE 30 MG TABLET PO SCH (22:06)
[2022-12-01] MEDS: THIAMINE HCL 100 MG TABLET (FP) PO SCH (22:06)
[2022-12-01] MEDS: INSULIN (LEVEMIR) 100 UNITS/ML UNITS SQ SCH (22:07)
[2022-12-02] MEDS ORDERED: chlordiazePOXIDE HCL 10 MG CAPSULE PO PRN
[2022-12-02] MEDS ORDERED: chlordiazePOXIDE HCL 10 MG CAPSULE PO SCH (05:00)
[2022-12-02] MEDS: methaDONE HCL 40 MG DISPERSABLE TABLET PO SCH (05:40)
[2022-12-02] MEDS: LORazepam 1 MG TABLET PO SCH ×4 (05:40→22:12)
[2022-12-02] MEDS: metFORMIN HCL 500 MG TABLET (FP) PO SCH ×2 (06:15→17:21)
[2022-12-02] MEDS: INSULIN SLIDING SCALE (NOVOLOG) 1 VIAL SQ SCH ×4 (06:15→22:17)
[2022-12-02] MEDS: PRENATAL VITAMINS W/ FOLIC ACID TABLET (FP) PO SCH (10:13)
[2022-12-02] MEDS: DOXYCYCLINE HYCLATE 100 MG TABLET PO SCH ×2 (10:13→17:21)
[2022-12-02] MEDS: ASPIRIN 81 MG CHEWABLE TABLETS PO SCH (10:14)
[2022-12-02] MEDS: LISINOPRIL 5 MG TABLET PO SCH (10:15)
[2022-12-02] MEDS ORDERED: INSULIN (NOVOLOG) ASPART 100 UNITS/ML 10ML VIAL ONE ×3 (11:23→22:19)
[2022-12-02] MEDS: LORazepam 1 MG TABLET PO PRN (13:08)
[2022-12-02] MEDS: ATORVASTATIN CA 10 MG TABLET (FP) PO SCH (22:12)
[2022-12-02] MEDS: THIAMINE HCL 100 MG TABLET (FP) PO SCH (22:12)
[2022-12-02] MEDS: MIRTAZAPINE 30 MG TABLET PO SCH (22:12)
[2022-12-02] MEDS: INSULIN (LEVEMIR) 100 UNITS/ML UNITS SQ SCH (22:18)
[2022-12-03] MEDS ORDERED: LORazepam 0.5 MG TABLET PO PRN
[2022-12-03] MEDS ORDERED: chlordiazePOXIDE HCL 10 MG CAPSULE PO SCH (05:00)
[2022-12-03] MEDS: LORazepam 0.5 MG TABLET PO SCH ×3 (05:13→16:29)
[2022-12-03] MEDS: methaDONE HCL 40 MG DISPERSABLE TABLET PO SCH (05:13)
[2022-12-03] MEDS: metFORMIN HCL 500 MG TABLET (FP) PO SCH ×2 (06:05→16:29)
[2022-12-03] MEDS: INSULIN SLIDING SCALE (NOVOLOG) 1 VIAL SQ SCH ×3 (06:10→16:25)
[2022-12-03] MEDS ORDERED: INSULIN (NOVOLOG) ASPART 100 UNITS/ML 10ML VIAL ONE ×2 (06:13→16:27)
[2022-12-03] MEDS: PRENATAL VITAMINS W/ FOLIC ACID TABLET (FP) PO SCH (10:01)
[2022-12-03] MEDS: LISINOPRIL 5 MG TABLET PO SCH (10:02)
[2022-12-03] MEDS: DOXYCYCLINE HYCLATE 100 MG TABLET PO SCH ×2 (10:02→17:22)
[2022-12-03] MEDS: ASPIRIN 81 MG CHEWABLE TABLETS PO SCH (10:02)
[2022-12-03] MEDS: ACETAMINOPHEN 325 MG TABLET (FP) PO PRN (13:39)
[2022-12-03 17:35] VITALS: BP 152/75; PULSE 78; RESP 16; TEMP 97.7
[2022-12-04] MEDS ORDERED: chlordiazePOXIDE HCL 10 MG CAPSULE PO ONE (05:00)
[2022-12-04] MEDS ORDERED: LORazepam 0.5 MG TABLET PO ONE (05:00)
== END 2022-12-03 19:18 | disposition other institution (70) | DRG 773 ==
LOC: YASAS 18:46 → Y6N 21:06
PROVIDERS: ADMIT Allergy & Immunology; ATTEND Surgery
PROC: HZ2ZZZZ Detoxification Services for Substance Abuse Treatment (ICD-10-PCS; principal; 2022-11-29)
DX: F10.230 Alcohol dependence with withdrawal, uncomplicated (principal); F11.20 Opioid dependence, uncomplicated; F17.210 Nicotine dependence, cigarettes, uncomplicated; F33.1 Major depressive disorder, recurrent, moderate; F10.282 Alcohol dependence with alcohol-induced sleep disorder; F10.280 Alcohol dependence with alcohol-induced anxiety disorder; I10 Essential (primary) hypertension; E78.5 Hyperlipidemia, unspecified; E11.9 Type 2 diabetes mellitus without complications; Z79.4 Long term (current) use of insulin; Z86.19 Personal history of other infectious and parasitic diseases; Z88.8 Allergy status to other drugs, medicaments and biological substances
CPT/HCPCS: 36415; 73630-TC-LT; 80053; 82962; 85027; 86780; 87811; 93005; 93010; C9803-CS; Q0162; U0003; U0005

== ENCOUNTER 2022-12-03 20:08 | Inpatient (IN) | payer OTHER ==
[2022-12-03] MEDS ORDERED: BENZOCAINE/MENTHOL (CHLORASEPTIC ) LOZENGE MM PRN (21:37)
[2022-12-03] MEDS ORDERED: guaiFENesin 200 MG/10 ML 10 ML UNIT-DOSE CUPS PO PRN (21:37)
[2022-12-03] MEDS ORDERED: MAG HYDROX/AL HYDROX/SIMETH 30 ML UNIT-DOSE CUP PO PRN (21:37)
[2022-12-03] MEDS ORDERED: POLYETHYLENE GLYCOL (HEALTHYLAX) 3350 17 GM PACKET PO PRN (21:37)
[2022-12-03] MEDS ORDERED: P-EPHED 60MG/TRIPROLIDI 2.5MG TABLET PO PRN (21:37)
[2022-12-03] MEDS ORDERED: LOPERAMIDE HCL 2 MG CAPSULE PO PRN (21:37)
[2022-12-03] MEDS ORDERED: NICOTINE POLACRILEX 2 MG GUM BUC PRN (21:37)
[2022-12-03] MEDS ORDERED: INSULIN (LEVEMIR) 100 UNITS/ML UNITS SQ SCH (22:00)
[2022-12-03] MEDS: ATORVASTATIN CA 10 MG TABLET (FP) PO SCH (22:09)
[2022-12-03] MEDS: MIRTAZAPINE 30 MG TABLET PO SCH (22:09)
[2022-12-03] MEDS: THIAMINE HCL 100 MG TABLET (FP) PO SCH (22:10)
[2022-12-04] MEDS: methaDONE HCL 40 MG DISPERSABLE TABLET PO SCH (05:40)
[2022-12-04] MEDS: INSULIN SLIDING SCALE (NOVOLOG) 1 VIAL SQ SCH ×3 (06:47→16:39)
[2022-12-04] MEDS: metFORMIN HCL 500 MG TABLET (FP) PO SCH ×2 (07:09→16:39)
[2022-12-04] MEDS: NICOTINE 14 MG/24 HOURS TOPICAL PATCH TD SCH (09:58)
[2022-12-04] MEDS: DOXYCYCLINE HYCLATE 100 MG TABLET PO SCH ×2 (09:58→17:15)
[2022-12-04] MEDS: PRENATAL VITAMINS W/ FOLIC ACID TABLET (FP) PO SCH (09:58)
[2022-12-04] MEDS: LISINOPRIL 5 MG TABLET PO SCH (09:58)
[2022-12-04] MEDS ORDERED: DOXYCYCLINE HYCLATE 100 MG CAPSULE PO SCH (10:00)
[2022-12-04] MEDS: IBUPROFEN 400 MG TABLET (FP) PO PRN (17:57)
[2022-12-04] MEDS: THIAMINE HCL 100 MG TABLET (FP) PO SCH (21:12)
[2022-12-04] MEDS: MIRTAZAPINE 30 MG TABLET PO SCH (21:12)
[2022-12-04] MEDS: ATORVASTATIN CA 10 MG TABLET (FP) PO SCH (21:12)
[2022-12-04] MEDS: QUEtiapine FUMARATE 50 MG TABLET PO SCH (21:13)
[2022-12-04] MEDS: INSULIN (LEVEMIR) 100 UNITS/ML UNITS SQ SCH (21:56)
[2022-12-05] MEDS: methaDONE HCL 40 MG DISPERSABLE TABLET PO SCH (06:03)
[2022-12-05] MEDS: metFORMIN HCL 500 MG TABLET (FP) PO SCH ×2 (06:03→16:21)
[2022-12-05] MEDS: INSULIN SLIDING SCALE (NOVOLOG) 1 VIAL SQ SCH ×3 (07:05→16:24)
[2022-12-05] MEDS: ACETAMINOPHEN 325 MG TABLET (FP) PO PRN (07:36)
[2022-12-05] MEDS: LISINOPRIL 5 MG TABLET PO SCH (10:00)
[2022-12-05] MEDS: NICOTINE 14 MG/24 HOURS TOPICAL PATCH TD SCH (10:00)
[2022-12-05] MEDS: DOXYCYCLINE HYCLATE 100 MG TABLET PO SCH ×2 (10:00→17:16)
[2022-12-05] MEDS: PRENATAL VITAMINS W/ FOLIC ACID TABLET (FP) PO SCH (10:00)
[2022-12-05] MEDS: IBUPROFEN 400 MG TABLET (FP) PO PRN (14:07)
[2022-12-05] MEDS: hydrOXYzine PAMOATE 25 MG CAPSULE (FP) PO PRN (16:22)
[2022-12-05] MEDS: INSULIN (LEVEMIR) 100 UNITS/ML UNITS SQ SCH (21:00)
[2022-12-05] MEDS: THIAMINE HCL 100 MG TABLET (FP) PO SCH (21:01)
[2022-12-05] MEDS: MIRTAZAPINE 30 MG TABLET PO SCH (21:01)
[2022-12-05] MEDS: QUEtiapine FUMARATE 50 MG TABLET PO SCH (21:01)
[2022-12-05] MEDS: ATORVASTATIN CA 10 MG TABLET (FP) PO SCH (21:02)
[2022-12-06] MEDS: methaDONE HCL 40 MG DISPERSABLE TABLET PO SCH (05:37)
[2022-12-06] MEDS: metFORMIN HCL 500 MG TABLET (FP) PO SCH ×2 (06:03→16:32)
[2022-12-06] MEDS: INSULIN SLIDING SCALE (NOVOLOG) 1 VIAL SQ SCH ×3 (06:25→17:07)
[2022-12-06] MEDS ORDERED: MINERAL OIL/PETROLAT/WATER TOPICAL CREAM 454 GM JAR TP PRN (09:53)
[2022-12-06] MEDS: PRENATAL VITAMINS W/ FOLIC ACID TABLET (FP) PO SCH (10:07)
[2022-12-06] MEDS: NICOTINE 14 MG/24 HOURS TOPICAL PATCH TD SCH (10:08)
[2022-12-06] MEDS: DOXYCYCLINE HYCLATE 100 MG TABLET PO SCH ×2 (10:08→17:06)
[2022-12-06] MEDS: LISINOPRIL 5 MG TABLET PO SCH (10:08)
[2022-12-06] MEDS: IBUPROFEN 400 MG TABLET (FP) PO PRN (13:35)
[2022-12-06] MEDS: ATORVASTATIN CA 10 MG TABLET (FP) PO SCH (21:24)
[2022-12-06] MEDS: MIRTAZAPINE 15 MG TABLET (FP) PO SCH (21:24)
[2022-12-06] MEDS: THIAMINE HCL 100 MG TABLET (FP) PO SCH (21:25)
[2022-12-06] MEDS: QUEtiapine FUMARATE 200 MG TABLET PO SCH (21:25)
[2022-12-06] MEDS: INSULIN (LEVEMIR) 100 UNITS/ML UNITS SQ SCH (23:08)
[2022-12-07] MEDS: methaDONE HCL 40 MG DISPERSABLE TABLET PO SCH (06:15)
[2022-12-07] MEDS: INSULIN SLIDING SCALE (NOVOLOG) 1 VIAL SQ SCH ×3 (06:48→17:04)
[2022-12-07] MEDS: metFORMIN HCL 500 MG TABLET (FP) PO SCH ×2 (06:48→17:01)
[2022-12-07] MEDS: PRENATAL VITAMINS W/ FOLIC ACID TABLET (FP) PO SCH (10:30)
[2022-12-07] MEDS: DOXYCYCLINE HYCLATE 100 MG TABLET PO SCH ×2 (10:31→17:02)
[2022-12-07] MEDS: LISINOPRIL 5 MG TABLET PO SCH (10:31)
[2022-12-07] MEDS: NICOTINE 14 MG/24 HOURS TOPICAL PATCH TD SCH (10:31)
[2022-12-07] MEDS: MAGNESIUM HYDROX 2400MG/30ML ORAL SUSPENSION 30 ML CUP PO PRN (17:00)
[2022-12-07] MEDS: IBUPROFEN 400 MG TABLET (FP) PO PRN (18:23)
[2022-12-07] MEDS: MIRTAZAPINE 15 MG TABLET (FP) PO SCH (21:02)
[2022-12-07] MEDS: QUEtiapine FUMARATE 200 MG TABLET PO SCH (21:02)
[2022-12-07] MEDS: ATORVASTATIN CA 10 MG TABLET (FP) PO SCH (21:02)
[2022-12-07] MEDS: INSULIN (LEVEMIR) 100 UNITS/ML UNITS SQ SCH (21:03)
[2022-12-07] MEDS: THIAMINE HCL 100 MG TABLET (FP) PO SCH (21:03)
[2022-12-07] MEDS: DOCUSATE SODIUM 100 MG CAPSULE (FP) PO PRN (21:03)
[2022-12-08] MEDS: metFORMIN HCL 500 MG TABLET (FP) PO SCH ×2 (06:03→16:37)
[2022-12-08] MEDS: methaDONE HCL 40 MG DISPERSABLE TABLET PO SCH (06:03)
[2022-12-08] MEDS: INSULIN SLIDING SCALE (NOVOLOG) 1 VIAL SQ SCH ×3 (06:29→16:39)
[2022-12-08] MEDS: NICOTINE 14 MG/24 HOURS TOPICAL PATCH TD SCH (09:39)
[2022-12-08] MEDS: LISINOPRIL 5 MG TABLET PO SCH (09:39)
[2022-12-08] MEDS: PRENATAL VITAMINS W/ FOLIC ACID TABLET (FP) PO SCH (09:39)
[2022-12-08] MEDS: DOXYCYCLINE HYCLATE 100 MG TABLET PO SCH ×2 (09:39→18:58)
[2022-12-08] MEDS: MAGNESIUM HYDROX 2400MG/30ML ORAL SUSPENSION 30 ML CUP PO PRN (09:41)
[2022-12-08] MEDS ORDERED: INSULIN SLIDING SCALE (NOVOLOG) 1 VIAL SQ ONE (11:49)
[2022-12-08] MEDS: IBUPROFEN 400 MG TABLET (FP) PO PRN (11:51)
[2022-12-08] MEDS: ATORVASTATIN CA 10 MG TABLET (FP) PO SCH (21:02)
[2022-12-08] MEDS: THIAMINE HCL 100 MG TABLET (FP) PO SCH (21:02)
[2022-12-08] MEDS: QUEtiapine FUMARATE 200 MG TABLET PO SCH (21:02)
[2022-12-08] MEDS: MIRTAZAPINE 15 MG TABLET (FP) PO SCH (21:02)
[2022-12-08] MEDS: hydrOXYzine PAMOATE 25 MG CAPSULE (FP) PO PRN (21:03)
[2022-12-08] MEDS: INSULIN (LEVEMIR) 100 UNITS/ML UNITS SQ SCH (21:04)
[2022-12-09] MEDS: metFORMIN HCL 500 MG TABLET (FP) PO SCH ×2 (06:02→16:19)
[2022-12-09] MEDS: methaDONE HCL 40 MG DISPERSABLE TABLET PO SCH (06:02)
[2022-12-09] MEDS: INSULIN SLIDING SCALE (NOVOLOG) 1 VIAL SQ SCH ×3 (06:27→16:20)
[2022-12-09] MEDS: DOXYCYCLINE HYCLATE 100 MG TABLET PO SCH ×2 (09:55→17:16)
[2022-12-09] MEDS: LISINOPRIL 5 MG TABLET PO SCH (09:55)
[2022-12-09] MEDS: NICOTINE 14 MG/24 HOURS TOPICAL PATCH TD SCH (09:55)
[2022-12-09] MEDS: PRENATAL VITAMINS W/ FOLIC ACID TABLET (FP) PO SCH (09:55)
[2022-12-09] MEDS: hydrOXYzine PAMOATE 25 MG CAPSULE (FP) PO PRN ×2 (11:50→21:00)
[2022-12-09] MEDS: MAGNESIUM HYDROX 2400MG/30ML ORAL SUSPENSION 30 ML CUP PO PRN (12:56)
[2022-12-09] MEDS: IBUPROFEN 400 MG TABLET (FP) PO PRN (20:59)
[2022-12-09] MEDS: MIRTAZAPINE 15 MG TABLET (FP) PO SCH (21:00)
[2022-12-09] MEDS: DOCUSATE SODIUM 100 MG CAPSULE (FP) PO PRN (21:00)
[2022-12-09] MEDS: QUEtiapine FUMARATE 200 MG TABLET PO SCH (21:00)
[2022-12-09] MEDS: ATORVASTATIN CA 10 MG TABLET (FP) PO SCH (21:00)
[2022-12-09] MEDS: THIAMINE HCL 100 MG TABLET (FP) PO SCH (21:01)
[2022-12-09] MEDS: INSULIN (LEVEMIR) 100 UNITS/ML UNITS SQ SCH (21:01)
[2022-12-10] MEDS: methaDONE HCL 40 MG DISPERSABLE TABLET PO SCH (06:26)
[2022-12-10] MEDS: metFORMIN HCL 500 MG TABLET (FP) PO SCH ×2 (06:26→17:00)
[2022-12-10] MEDS: hydrOXYzine PAMOATE 25 MG CAPSULE (FP) PO PRN (06:27)
[2022-12-10] MEDS: INSULIN SLIDING SCALE (NOVOLOG) 1 VIAL SQ SCH ×3 (06:30→17:02)
[2022-12-10] MEDS: NICOTINE 14 MG/24 HOURS TOPICAL PATCH TD SCH (10:17)
[2022-12-10] MEDS: DOXYCYCLINE HYCLATE 100 MG TABLET PO SCH ×2 (10:18→17:02)
[2022-12-10] MEDS: LISINOPRIL 5 MG TABLET PO SCH (10:18)
[2022-12-10] MEDS: PRENATAL VITAMINS W/ FOLIC ACID TABLET (FP) PO SCH (10:18)
[2022-12-10] MEDS: MAGNESIUM HYDROX 2400MG/30ML ORAL SUSPENSION 30 ML CUP PO PRN (12:01)
[2022-12-10] MEDS ORDERED: INSULIN SLIDING SCALE (NOVOLOG) 1 VIAL SQ ONE (12:03)
[2022-12-10] MEDS ORDERED: hydrOXYzine PAMOATE 25 MG CAPSULE (FP) PO ONE (14:53)
[2022-12-10] MEDS: IBUPROFEN 400 MG TABLET (FP) PO PRN (14:54)
[2022-12-10] MEDS: hydrOXYzine PAMOATE 50 MG CAPSULE (FP) PO PRN (15:04)
[2022-12-10] MEDS: MIRTAZAPINE 15 MG TABLET (FP) PO SCH (21:48)
[2022-12-10] MEDS: THIAMINE HCL 100 MG TABLET (FP) PO SCH (21:49)
[2022-12-10] MEDS: INSULIN (LEVEMIR) 100 UNITS/ML UNITS SQ SCH (21:49)
[2022-12-10] MEDS: QUEtiapine FUMARATE 200 MG TABLET PO SCH (21:49)
[2022-12-10] MEDS: ATORVASTATIN CA 10 MG TABLET (FP) PO SCH (21:49)
[2022-12-11] MEDS: INSULIN SLIDING SCALE (NOVOLOG) 1 VIAL SQ SCH ×3 (06:10→17:22)
[2022-12-11] MEDS: metFORMIN HCL 500 MG TABLET (FP) PO SCH ×2 (06:12→16:36)
[2022-12-11] MEDS: methaDONE HCL 40 MG DISPERSABLE TABLET PO SCH (06:12)
[2022-12-11] MEDS: NICOTINE 14 MG/24 HOURS TOPICAL PATCH TD SCH (09:40)
[2022-12-11] MEDS: DOXYCYCLINE HYCLATE 100 MG TABLET PO SCH ×2 (09:40→17:22)
[2022-12-11] MEDS: LISINOPRIL 5 MG TABLET PO SCH (09:41)
[2022-12-11] MEDS: PRENATAL VITAMINS W/ FOLIC ACID TABLET (FP) PO SCH (09:41)
[2022-12-11] MEDS: hydrOXYzine PAMOATE 50 MG CAPSULE (FP) PO PRN ×2 (09:42→16:36)
[2022-12-11] MEDS: MAGNESIUM HYDROX 2400MG/30ML ORAL SUSPENSION 30 ML CUP PO PRN (12:19)
[2022-12-11] MEDS: IBUPROFEN 400 MG TABLET (FP) PO PRN (17:21)
[2022-12-11] MEDS: QUEtiapine FUMARATE 200 MG TABLET PO SCH (21:27)
[2022-12-11] MEDS: THIAMINE HCL 100 MG TABLET (FP) PO SCH (21:27)
[2022-12-11] MEDS: ATORVASTATIN CA 10 MG TABLET (FP) PO SCH (21:27)
[2022-12-11] MEDS: MIRTAZAPINE 15 MG TABLET (FP) PO SCH (21:28)
[2022-12-11] MEDS: INSULIN (LEVEMIR) 100 UNITS/ML UNITS SQ SCH (21:35)
[2022-12-12] MEDS: methaDONE HCL 40 MG DISPERSABLE TABLET PO SCH (05:57)
[2022-12-12] MEDS: metFORMIN HCL 500 MG TABLET (FP) PO SCH ×2 (06:00→16:47)
[2022-12-12] MEDS: INSULIN SLIDING SCALE (NOVOLOG) 1 VIAL SQ SCH ×3 (06:01→17:14)
[2022-12-12] MEDS: LISINOPRIL 5 MG TABLET PO SCH (10:08)
[2022-12-12] MEDS: PRENATAL VITAMINS W/ FOLIC ACID TABLET (FP) PO SCH (10:08)
[2022-12-12] MEDS: DOXYCYCLINE HYCLATE 100 MG TABLET PO SCH ×2 (10:08→17:14)
[2022-12-12] MEDS: NICOTINE 14 MG/24 HOURS TOPICAL PATCH TD SCH (10:09)
[2022-12-12] MEDS: MAGNESIUM HYDROX 2400MG/30ML ORAL SUSPENSION 30 ML CUP PO PRN (10:09)
[2022-12-12] MEDS: hydrOXYzine PAMOATE 50 MG CAPSULE (FP) PO PRN ×2 (10:09→18:28)
[2022-12-12] MEDS: ACETAMINOPHEN 325 MG TABLET (FP) PO PRN (16:48)
[2022-12-12] MEDS: MIRTAZAPINE 15 MG TABLET (FP) PO SCH (21:21)
[2022-12-12] MEDS: INSULIN (LEVEMIR) 100 UNITS/ML UNITS SQ SCH (21:22)
[2022-12-12] MEDS: ATORVASTATIN CA 10 MG TABLET (FP) PO SCH (21:22)
[2022-12-12] MEDS: THIAMINE HCL 100 MG TABLET (FP) PO SCH (21:22)
[2022-12-12] MEDS: QUEtiapine FUMARATE 200 MG TABLET PO SCH (21:22)
[2022-12-13] MEDS: methaDONE HCL 40 MG DISPERSABLE TABLET PO SCH (06:04)
[2022-12-13] MEDS: metFORMIN HCL 500 MG TABLET (FP) PO SCH ×2 (06:05→16:22)
[2022-12-13] MEDS: hydrOXYzine PAMOATE 50 MG CAPSULE (FP) PO PRN ×2 (06:06→16:24)
[2022-12-13] MEDS: INSULIN SLIDING SCALE (NOVOLOG) 1 VIAL SQ SCH ×3 (06:07→16:23)
[2022-12-13] MEDS: NICOTINE 14 MG/24 HOURS TOPICAL PATCH TD SCH (09:36)
[2022-12-13] MEDS: PRENATAL VITAMINS W/ FOLIC ACID TABLET (FP) PO SCH (09:36)
[2022-12-13] MEDS: LISINOPRIL 5 MG TABLET PO SCH (09:38)
[2022-12-13] MEDS: DOXYCYCLINE HYCLATE 100 MG TABLET PO SCH (09:38)
[2022-12-13] MEDS: IBUPROFEN 400 MG TABLET (FP) PO PRN (09:39)
[2022-12-13] MEDS: DOCUSATE SODIUM 100 MG CAPSULE (FP) PO PRN (12:27)
[2022-12-13] MEDS: MAGNESIUM HYDROX 2400MG/30ML ORAL SUSPENSION 30 ML CUP PO PRN (12:27)
[2022-12-13 16:50] VITALS: BP 132/69; PULSE 76; RESP 20; TEMP 98.2
== END 2022-12-13 16:52 | disposition short-term general hospital (02) | DRG 772 ==
LOC: YASAS 20:08 → Y3W 20:10
PROVIDERS: ADMIT Allergy & Immunology; ATTEND Psychiatry & Neurology Pain Medicine
PROC: HZ42ZZZ Group Counseling for Substance Abuse Treatment, Cognitive-Behavioral (ICD-10-PCS; principal; 2022-12-03)
DX: F10.20 Alcohol dependence, uncomplicated (principal); F13.20 Sedative, hypnotic or anxiolytic dependence, uncomplicated; F11.20 Opioid dependence, uncomplicated; F17.210 Nicotine dependence, cigarettes, uncomplicated; R45.851 Suicidal ideations; E78.5 Hyperlipidemia, unspecified; I10 Essential (primary) hypertension; G47.00 Insomnia, unspecified; E11.9 Type 2 diabetes mellitus without complications; Z79.4 Long term (current) use of insulin; Z89.412 Acquired absence of left great toe; Z88.8 Allergy status to other drugs, medicaments and biological substances
CPT/HCPCS: 82962

== ENCOUNTER 2023-02-14 14:56 | Inpatient (IN) | payer OTHER ==
[2023-02-14 17:44] VITALS: BMI 32.8
[2023-02-14] MEDS ORDERED: guaiFENesin 600 MG TABLET.ER (FP) PO PRN (19:13)
[2023-02-14] MEDS ORDERED: IBUPROFEN 400 MG TABLET (FP) PO PRN (19:13)
[2023-02-14] MEDS ORDERED: BENZONATATE 200 MG CAPSULE PO PRN (19:13)
[2023-02-14] MEDS ORDERED: LOPERAMIDE HCL 2 MG CAPSULE PO PRN (19:13)
[2023-02-14] MEDS ORDERED: DICYCLOMINE HCL 10 MG CAPSULE PO PRN (19:13)
[2023-02-14] MEDS ORDERED: BISMUTH SUBSALICYLATE 524 MG/30 ML PO PRN (19:13)
[2023-02-14] MEDS ORDERED: NALOXONE HCL (KLOXXADO) 8 MG SPRAY NS PRN (19:13)
[2023-02-14] MEDS ORDERED: MAG HYDROX/AL HYDROX/SIMETH 30 ML UNIT-DOSE CUP PO PRN (19:13)
[2023-02-14] MEDS ORDERED: POLYETHYLENE GLYCOL (HEALTHYLAX) 3350 17 GM PACKET PO PRN (19:13)
[2023-02-14] MEDS ORDERED: IBUPROFEN 600 MG TABLET (FP) PO PRN (19:13)
[2023-02-14] MEDS ORDERED: MAGNESIUM HYDROX 2400MG/30ML ORAL SUSPENSION 30 ML CUP PO PRN (19:13)
[2023-02-14] MEDS ORDERED: BENZOCAINE/MENTHOL (CHLORASEPTIC ) LOZENGE MM PRN (19:13)
[2023-02-14] MEDS ORDERED: ACETAMINOPHEN 325 MG TABLET (FP) PO PRN (19:13)
[2023-02-14] MEDS ORDERED: NALOXONE HCL 0.4 MG/ML VIAL IM PRN (19:13)
[2023-02-14] MEDS ORDERED: NICOTINE POLACRILEX 2 MG GUM BUC PRN (19:13)
[2023-02-14] MEDS ORDERED: P-EPHED 60MG/TRIPROLIDI 2.5MG TABLET PO PRN (19:13)
[2023-02-14] MEDS ORDERED: diazePAM 5 MG TABLET PO ONE (19:45)
[2023-02-14] MEDS ORDERED: diazePAM 5 MG TABLET ONE (19:54)
[2023-02-14] MEDS ORDERED: INSULIN (NOVOLOG) ASPART 100 UNITS/ML 10ML VIAL ONE (22:45)
[2023-02-14] MEDS: INSULIN SLIDING SCALE (NOVOLOG) 1 VIAL SQ SCH (22:45)
[2023-02-14] MEDS: diazePAM 5 MG TABLET PO SCH (22:46)
[2023-02-14] MEDS: THIAMINE HCL 100 MG TABLET (FP) PO SCH (22:46)
[2023-02-14] MEDS: MELATONIN 5 MG TABLETS PO PRN (22:47)
[2023-02-15] MEDS: diazePAM 5 MG TABLET PO PRN ×4 (01:09→18:41)
[2023-02-15] MEDS: diazePAM 5 MG TABLET PO SCH ×4 (05:08→22:18)
[2023-02-15] MEDS: ONDANSETRON *ODT* 4 MG TABLET SL PRN (06:28)
[2023-02-15] MEDS: INSULIN SLIDING SCALE (NOVOLOG) 1 VIAL SQ SCH ×4 (06:28→22:18)
[2023-02-15] MEDS: PRENATAL VITAMINS W/ FOLIC ACID TABLET (FP) PO SCH (10:09)
[2023-02-15] MEDS: methaDONE HCL 40 MG DISPERSABLE TABLET PO SCH (10:53)
[2023-02-15 11:45] LABS: POTASSIUM 5.2 mmol/L (3.5-5.1)
[2023-02-15 11:46] LABS: HEMATOCRIT 35.8 % (35.4-49); HEMOGLOBIN 12.2 GM/dL (11.7-16.9); MCH 29.8 pg (25.7-33.7); MEAN CELL VOLUME 87.6 fl (80-96); MEAN PLT VOLUME 10.3 fl (7.5-11.1); PLATELET COUNT 383 10^3/uL (134-434); RBC 4.09 M/mm3 (4.00-5.60); WHITE BLOOD COUNT 10.7 K/mm3 (4.0-10.0)
[2023-02-15 12:08] LABS: CALCIUM 9.6 mg/dL (8.5-10.1)
[2023-02-15 12:09] LABS: ALBUMIN 3.2 g/dl (3.4-5.0); BLOOD UREA NITROGEN 9.1 mg/dL (7-18)
[2023-02-15 12:12] LABS: CREATININE 0.8 mg/dL (0.55-1.3)
[2023-02-15 12:13] LABS: TOT PROT 7.3 g/dl (6.4-8.2)
[2023-02-15 12:14] LABS: BILIRUBIN,TOTAL 0.5 mg/dL (0.2-1)
[2023-02-15] MEDS ORDERED: glyBURIDE 5 MG TABLET PO SCH (12:30)
[2023-02-15] MEDS: glyBURIDE 5 MG TABLET PO SCH (13:32)
[2023-02-15] MEDS: ASPIRIN 81 MG CHEWABLE TABLETS PO SCH (13:32)
[2023-02-15] MEDS: LISINOPRIL 5 MG TABLET PO SCH (13:32)
[2023-02-15] MEDS: metFORMIN HCL 500 MG TABLET (FP) PO SCH (17:02)
[2023-02-15] MEDS: ATORVASTATIN CA 10 MG TABLET (FP) PO SCH (22:17)
[2023-02-15] MEDS: THIAMINE HCL 100 MG TABLET (FP) PO SCH (22:17)
[2023-02-15] MEDS: MELATONIN 5 MG TABLETS PO PRN (22:19)
[2023-02-15] MEDS ORDERED: INSULIN (NOVOLOG) ASPART 100 UNITS/ML 10ML VIAL ONE (22:54)
[2023-02-16] MEDS: diazePAM 5 MG TABLET PO PRN ×3 (02:16→17:18)
[2023-02-16] MEDS: methaDONE HCL 40 MG DISPERSABLE TABLET PO SCH (05:39)
[2023-02-16] MEDS: diazePAM 5 MG TABLET PO SCH ×3 (05:39→22:16)
[2023-02-16] MEDS: metFORMIN HCL 500 MG TABLET (FP) PO SCH ×2 (07:30→17:17)
[2023-02-16] MEDS: glyBURIDE 5 MG TABLET PO SCH (07:30)
[2023-02-16] MEDS: INSULIN SLIDING SCALE (NOVOLOG) 1 VIAL SQ SCH ×4 (07:31→22:22)
[2023-02-16] MEDS: PRENATAL VITAMINS W/ FOLIC ACID TABLET (FP) PO SCH (10:02)
[2023-02-16] MEDS: LISINOPRIL 5 MG TABLET PO SCH (10:02)
[2023-02-16] MEDS: ASPIRIN 81 MG CHEWABLE TABLETS PO SCH (10:02)
[2023-02-16] MEDS: ONDANSETRON *ODT* 4 MG TABLET SL PRN (11:11)
[2023-02-16] MEDS ORDERED: INSULIN (NOVOLOG) ASPART 100 UNITS/ML 10ML VIAL ONE ×2 (11:22→17:06)
[2023-02-16] MEDS: QUEtiapine FUMARATE 100 MG TABLET (FP) PO SCH (22:15)
[2023-02-16] MEDS: THIAMINE HCL 100 MG TABLET (FP) PO SCH (22:15)
[2023-02-16] MEDS: busPIRone HCL 10 MG TABLET (FP) PO SCH (22:16)
[2023-02-16] MEDS: ATORVASTATIN CA 10 MG TABLET (FP) PO SCH (22:16)
[2023-02-17] MEDS: methaDONE HCL 40 MG DISPERSABLE TABLET PO SCH (05:40)
[2023-02-17] MEDS: diazePAM 5 MG TABLET PO SCH ×2 (05:41→17:34)
[2023-02-17] MEDS: metFORMIN HCL 500 MG TABLET (FP) PO SCH ×2 (06:24→17:34)
[2023-02-17] MEDS: glyBURIDE 5 MG TABLET PO SCH (07:41)
[2023-02-17] MEDS: INSULIN SLIDING SCALE (NOVOLOG) 1 VIAL SQ SCH ×4 (07:41→22:39)
[2023-02-17] MEDS: PRENATAL VITAMINS W/ FOLIC ACID TABLET (FP) PO SCH (10:08)
[2023-02-17] MEDS: LISINOPRIL 5 MG TABLET PO SCH (10:08)
[2023-02-17] MEDS: ASPIRIN 81 MG CHEWABLE TABLETS PO SCH (10:08)
[2023-02-17] MEDS: busPIRone HCL 10 MG TABLET (FP) PO SCH ×2 (10:08→22:38)
[2023-02-17] MEDS: diazePAM 5 MG TABLET PO PRN ×2 (10:12→14:40)
[2023-02-17] MEDS ORDERED: INSULIN (NOVOLOG) ASPART 100 UNITS/ML 10ML VIAL ONE (11:32)
[2023-02-17 11:45] LABS: BASO % 0.3 % (0-2.0); EOS % 1.8 % (0-4.5); HEMATOCRIT 34.8 % (35.4-49); HEMOGLOBIN 11.5 GM/dL (11.7-16.9); LYMPH % 36.8 % (8-40); MCH 29.3 pg (25.7-33.7); MCHC 33.2 g/dl (32.0-35.9); MEAN CELL VOLUME 88.3 fl (80-96); MEAN PLT VOLUME 9.8 fl (7.5-11.1); NEUT % 50.1 % (42.8-82.8); PLATELET COUNT 367 10^3/uL (134-434); RBC 3.95 M/mm3 (4.00-5.60); RDW 15.8 % (11.9-15.9); WHITE BLOOD COUNT 13.2 K/mm3 (4.0-10.0)
[2023-02-17] MEDS: QUEtiapine FUMARATE 100 MG TABLET (FP) PO SCH (22:37)
[2023-02-17] MEDS: ATORVASTATIN CA 10 MG TABLET (FP) PO SCH (22:37)
[2023-02-17] MEDS: THIAMINE HCL 100 MG TABLET (FP) PO SCH (22:37)
[2023-02-18] MEDS: methaDONE HCL 40 MG DISPERSABLE TABLET PO SCH (05:34)
[2023-02-18] MEDS ORDERED: diazePAM 5 MG TABLET PO ONE (06:00)
[2023-02-18] MEDS: glyBURIDE 5 MG TABLET PO SCH (06:19)
[2023-02-18] MEDS: INSULIN SLIDING SCALE (NOVOLOG) 1 VIAL SQ SCH ×2 (06:19→10:42)
[2023-02-18] MEDS: metFORMIN HCL 500 MG TABLET (FP) PO SCH (06:19)
[2023-02-18 09:53] VITALS: BP 134/66; PULSE 84; RESP 18; TEMP 97.6
[2023-02-18] MEDS: LISINOPRIL 5 MG TABLET PO SCH (10:42)
[2023-02-18] MEDS: busPIRone HCL 10 MG TABLET (FP) PO SCH (10:42)
[2023-02-18] MEDS: ASPIRIN 81 MG CHEWABLE TABLETS PO SCH (10:42)
[2023-02-18] MEDS: PRENATAL VITAMINS W/ FOLIC ACID TABLET (FP) PO SCH (10:43)
== END 2023-02-18 12:30 | disposition home or self-care (01) | DRG 773 ==
LOC: YASAS 14:56 → Y6N 19:43
PROVIDERS: ADMIT Allergy & Immunology; ATTEND Surgery
PROC: HZ2ZZZZ Detoxification Services for Substance Abuse Treatment (ICD-10-PCS; principal; 2023-02-14)
DX: F10.230 Alcohol dependence with withdrawal, uncomplicated (principal); F13.20 Sedative, hypnotic or anxiolytic dependence, uncomplicated; F11.20 Opioid dependence, uncomplicated; F12.20 Cannabis dependence, uncomplicated; F17.210 Nicotine dependence, cigarettes, uncomplicated; F19.282 Other psychoactive substance dependence with psychoactive substance-induced sleep disorder; F19.280 Other psychoactive substance dependence with psychoactive substance-induced anxiety disorder; E78.5 Hyperlipidemia, unspecified; I10 Essential (primary) hypertension; E11.9 Type 2 diabetes mellitus without complications; Z79.4 Long term (current) use of insulin; Z62.810 Personal history of physical and sexual abuse in childhood; R26.89 Other abnormalities of gait and mobility; Z89.422 Acquired absence of other left toe(s); Z89.421 Acquired absence of other right toe(s)
CPT/HCPCS: 36415; 80053; 82962; 84132; 85025; 85027; 86780; C9803-CS; Q0162; U0003; U0005

== ENCOUNTER 2023-02-19 16:54 | Inpatient (IN) | payer OTHER ==
[2023-02-19] MEDS ORDERED: SODIUM CHLORIDE 500 ML IV STA ×2 (17:02→20:26)
[2023-02-19 18:48] LABS: BASO % 0.9 % (0-2.0); EOS % 1.6 % (0-4.5); HEMATOCRIT 34.6 % (35.4-49); HEMOGLOBIN 11.3 GM/dL (11.7-16.9); LYMPH % 25.8 % (8-40); MCH 28.9 pg (25.7-33.7); MCHC 32.7 g/dl (32.0-35.9); MEAN CELL VOLUME 88.3 fl (80-96); MEAN PLT VOLUME 8.9 fl (7.5-11.1); MONO % 10.7 % (3.8-10.2); PLATELET COUNT 363 10^3/uL (134-434); RBC 3.92 M/mm3 (4.00-5.60); RDW 15.6 % (11.9-15.9)
[2023-02-19] MEDS ORDERED: THIAMINE HCL 200 MG/2 ML VIAL IVPB ONE (19:05)
[2023-02-19 19:07] LABS: POTASSIUM 4.6 mmol/L (3.5-5.1)
[2023-02-19 19:09] LABS: ALBUMIN 3.3 g/dl (3.4-5.0); CALCIUM 9.1 mg/dL (8.5-10.1); INR 1.1 (0.83-1.09); PROTHROMBIN TIME (PATIENT) 12.8 SEC (9.7-13.0)
[2023-02-19 19:12] LABS: ACTIVATED PTT 30.7 SECONDS (25.2-36.5)
[2023-02-19 19:13] LABS: CREATININE 1.1 mg/dL (0.55-1.3); VENOUS BASE EXCESS 1.7 mmol/L (-2-2); VENOUS O2 SATURATION 61.8 % (70-80); VENOUS PCO2 60.3 mmHg (38-52); VENOUS PH 7.305 (7.310-7.410)
[2023-02-19 19:15] LABS: BILIRUBIN,TOTAL 0.4 mg/dL (0.2-1); TOT PROT 7.4 g/dl (6.4-8.2)
[2023-02-19] MEDS ORDERED: VANCOMYCIN 1 GM in D5W (PRE-DOCKED) 1,000 MG/250 ML (RESTRICTED TO ID ONLY IVPB ONE (20:29)
[2023-02-19] MEDS ORDERED: CEFEPIME HCL/D5W 2 GM/50 ML BAG IVPB ONE (20:29)
[2023-02-19 22:42] LABS: URINE APPEARANCE CLEAR; URINE BILIRUBIN NEGATIVE (NEGATIVE); URINE COLOR YELLOW; URINE GLUCOSE (UA) NEGATIVE (NEGATIVE); URINE KETONE NEGATIVE (NEGATIVE); URINE LEUK ESTERASE NEGATIVE (NEGATIVE); URINE NITRITE NEGATIVE (NEGATIVE); URINE PROTEIN NEGATIVE (NEGATIVE); URINE UROBILINOGEN 0.2 mg/dL (0.2-1.0); VENOUS O2 SATURATION 75.6 % (70-80); VENOUS PCO2 45.3 mmHg (38-52); VENOUS PH 7.357 (7.310-7.410)
[2023-02-19 22:49] LABS: COCAINE, UR NEGATIVE (NEGATIVE); OPIATES, URI NEGATIVE (NEGATIVE); URINE BARBITURATES NEGATIVE (NEGATIVE)
[2023-02-19 22:50] LABS: PHENCYCLIDINE,URINE NEGATIVE (NEGATIVE); URINE AMPHETAMINES NEGATIVE (NEGATIVE)
[2023-02-19] MEDS ORDERED: SENNOSIDES 8.6MG TABLET (FP) PO PRN (22:52)
[2023-02-19 23:18] LABS: METHADONE, UR POSITIVE (NEGATIVE); URINE BENZODIAZEPINES POSITIVE (NEGATIVE)
[2023-02-20] MEDS ORDERED: FOLIC ACID INJECTION - 1 MG, THIAMINE HCL 100 MG, MULTIVIT INJECTION ADULT 10 ML in SOD... IVPB ONE (00:30)
[2023-02-20] MEDS ORDERED: THIAMINE HCL 200 MG/2 ML VIAL ONE (00:32)
[2023-02-20] MEDS ORDERED: CEFEPIME 2 GM/100 ML BAG IVPB ONE (00:33)
[2023-02-20] MEDS ORDERED: VANCOMYCIN/WATER FOR INJ (PEG) 1,000 MG/200 ML BAG IVPB ONE (02:38)
[2023-02-20] MEDS: INSULIN SLIDING SCALE (NOVOLOG) 1 VIAL SQ SCH ×4 (06:24→23:00)
[2023-02-20] MEDS: THIAMINE HCL 200 MG/2 ML VIAL IVPB SCH ×3 (06:37→21:07)
[2023-02-20] MEDS: GABAPENTIN 300 MG CAPSULE PO SCH ×3 (06:37→21:05)
[2023-02-20 07:49] VITALS: BMI 26.9
[2023-02-20] MEDS: LORazepam 1 MG TABLET PO PRN ×3 (08:12→21:05)
[2023-02-20] MEDS: TAMSULOSIN HCL 0.4 MG CAP PO SCH (08:12)
[2023-02-20] MEDS: DOXYCYCLINE INJECTION 100 MG in DEXTROSE 5%-WATER 100 ML IVPB SCH ×2 (09:47→21:08)
[2023-02-20] MEDS: busPIRone HCL 10 MG TABLET (FP) PO SCH ×2 (09:50→21:05)
[2023-02-20] MEDS: ENOXAPARIN NA (PORCINE) 40 MG/0.4 ML DISP.SYRIN SQ SCH (09:50)
[2023-02-20] MEDS: CITALOPRAM HYDROBROMIDE 20 MG TABLET PO SCH (09:50)
[2023-02-20] MEDS: MULTIVITAMINS (DAILY MVI) TABLET (FP) PO SCH (09:50)
[2023-02-20] MEDS: NICOTINE 21 MG/24 HOURS TOPICAL PATCH TD SCH (09:50)
[2023-02-20] MEDS: ASPIRIN 81 MG CHEWABLE TABLETS PO SCH (09:50)
[2023-02-20] MEDS: LISINOPRIL 5 MG TABLET PO SCH (09:50)
[2023-02-20] MEDS: PANTOPRAZOLE 20 MG TABLET PO SCH (09:50)
[2023-02-20] MEDS: FOLIC ACID 1 MG TABLET (FP) PO SCH (09:50)
[2023-02-20] MEDS ORDERED: methaDONE HCL 10 MG TABLET PO ONE (10:15)
[2023-02-20] MEDS: CEFTRIAXONE 1 GM in DEXTROSE 5%-WATER - 50 ML IVPB SCH (10:38)
[2023-02-20] MEDS ORDERED: INSULIN (NOVOLOG) ASPART 100 UNITS/ML 10ML VIAL ONE ×3 (11:03→23:00)
[2023-02-20 13:31] LABS: EOS % 2.6 % (0-4.5); HEMATOCRIT 34.6 % (35.4-49); HEMOGLOBIN 11.4 GM/dL (11.7-16.9); LYMPH % 19.8 % (8-40); MCH 29.4 pg (25.7-33.7); MEAN CELL VOLUME 88.9 fl (80-96); MEAN PLT VOLUME 10.1 fl (7.5-11.1); MONO % 9.5 % (3.8-10.2); NEUT % 67.1 % (42.8-82.8); PLATELET COUNT 362 10^3/uL (134-434); RBC 3.89 M/mm3 (4.00-5.60); RDW 15.5 % (11.9-15.9); RETICULOCYTES 0.81 % (0.5-1.5); WHITE BLOOD COUNT 9.5 K/mm3 (4.0-10.0)
[2023-02-20 13:39] LABS: INR 1.12 (0.83-1.09)
[2023-02-20 13:41] LABS: ACTIVATED PTT 35.6 SECONDS (25.2-36.5)
[2023-02-20 13:58] LABS: CALCIUM 9.5 mg/dL (8.5-10.1)
[2023-02-20 13:59] LABS: ALBUMIN 2.8 g/dl (3.4-5.0); BLOOD UREA NITROGEN 18.1 mg/dL (7-18); MAGNESIUM 1.9 mg/dL (1.8-2.4)
[2023-02-20 14:02] LABS: CREATININE 0.8 mg/dL (0.55-1.3); PHOSPHOROUS 3.1 mg/dL (2.5-4.9)
[2023-02-20 14:04] LABS: BILIRUBIN,TOTAL 1.2 mg/dL (0.2-1); TOT PROT 6.8 g/dl (6.4-8.2)
[2023-02-20] MEDS ORDERED: INSULIN (LEVEMIR) 100 UNITS/ML UNITS SQ SCH (22:00)
[2023-02-20] MEDS: INSULIN (LEVEMIR) 100 UNITS/ML UNITS SQ SCH (22:49)
[2023-02-20] MEDS: ATORVASTATIN CA 40 MG TABLET (FP) PO SCH (22:50)
[2023-02-21] MEDS ORDERED: MELATONIN 5 MG TABLETS PO ONE (01:47)
[2023-02-21] MEDS: INSULIN SLIDING SCALE (NOVOLOG) 1 VIAL SQ SCH ×4 (06:09→21:57)
[2023-02-21] MEDS ORDERED: INSULIN (NOVOLOG) ASPART 100 UNITS/ML 10ML VIAL ONE ×4 (06:09→21:20)
[2023-02-21] MEDS: LORazepam 1 MG TABLET PO PRN (06:23)
[2023-02-21] MEDS: GABAPENTIN 300 MG CAPSULE PO SCH ×3 (06:23→21:57)
[2023-02-21] MEDS: THIAMINE HCL 200 MG/2 ML VIAL IVPB SCH ×3 (06:32→21:57)
[2023-02-21 08:05] LABS: BASO % 1.2 % (0-2.0); EOS % 3.6 % (0-4.5); HEMATOCRIT 35.2 % (35.4-49); HEMOGLOBIN 11.6 GM/dL (11.7-16.9); LYMPH % 30.9 % (8-40); MCH 29.6 pg (25.7-33.7); MCHC 32.9 g/dl (32.0-35.9); MEAN PLT VOLUME 10.7 fl (7.5-11.1); MONO % 13.9 % (3.8-10.2); NEUT % 50.4 % (42.8-82.8); PLATELET COUNT 313 10^3/uL (134-434); RBC 3.92 M/mm3 (4.00-5.60); RDW 15.7 % (11.9-15.9); WHITE BLOOD COUNT 8.5 K/mm3 (4.0-10.0)
[2023-02-21 08:14] LABS: POTASSIUM 5.1 mmol/L (3.5-5.1)
[2023-02-21 08:16] LABS: ALBUMIN 2.9 g/dl (3.4-5.0); BLOOD UREA NITROGEN 21.9 mg/dL (7-18); CALCIUM 9.3 mg/dL (8.5-10.1)
[2023-02-21 08:19] LABS: CREATININE 0.9 mg/dL (0.55-1.3)
[2023-02-21 08:22] LABS: BILIRUBIN,TOTAL 0.3 mg/dL (0.2-1); TOT PROT 6.8 g/dl (6.4-8.2)
[2023-02-21] MEDS: MULTIVITAMINS (DAILY MVI) TABLET (FP) PO SCH (09:27)
[2023-02-21] MEDS: ENOXAPARIN NA (PORCINE) 40 MG/0.4 ML DISP.SYRIN SQ SCH (09:28)
[2023-02-21] MEDS: LISINOPRIL 5 MG TABLET PO SCH (09:28)
[2023-02-21] MEDS: NICOTINE 21 MG/24 HOURS TOPICAL PATCH TD SCH (09:28)
[2023-02-21] MEDS: busPIRone HCL 10 MG TABLET (FP) PO SCH ×2 (09:28→21:56)
[2023-02-21] MEDS: FOLIC ACID 1 MG TABLET (FP) PO SCH (09:28)
[2023-02-21] MEDS: ASPIRIN 81 MG CHEWABLE TABLETS PO SCH (09:28)
[2023-02-21] MEDS: TAMSULOSIN HCL 0.4 MG CAP PO SCH (09:28)
[2023-02-21] MEDS: PANTOPRAZOLE 20 MG TABLET PO SCH (09:28)
[2023-02-21] MEDS: CITALOPRAM HYDROBROMIDE 20 MG TABLET PO SCH (09:28)
[2023-02-21] MEDS: DOXYCYCLINE INJECTION 100 MG in DEXTROSE 5%-WATER 100 ML IVPB SCH ×2 (09:28→21:57)
[2023-02-21] MEDS ORDERED: chlordiazePOXIDE HCL 25 MG CAPSULE PO PRN (10:12)
[2023-02-21] MEDS: chlordiazePOXIDE HCL 25 MG CAPSULE PO SCH ×3 (10:58→22:42)
[2023-02-21] MEDS: CEFTRIAXONE 1 GM in DEXTROSE 5%-WATER - 50 ML IVPB SCH (10:58)
[2023-02-21] MEDS: methaDONE HCL 40 MG DISPERSABLE TABLET PO SCH (11:15)
[2023-02-21] MEDS ORDERED: INSULIN (LEVEMIR) 100 UNITS/ML UNITS SQ ONE (15:29)
[2023-02-21] MEDS: INSULIN (LEVEMIR) 100 UNITS/ML UNITS SQ SCH (21:56)
[2023-02-21] MEDS: ATORVASTATIN CA 40 MG TABLET (FP) PO SCH (21:57)
[2023-02-22] MEDS: chlordiazePOXIDE HCL 25 MG CAPSULE PO SCH ×4 (06:18→23:17)
[2023-02-22] MEDS: GABAPENTIN 300 MG CAPSULE PO SCH ×3 (06:18→21:49)
[2023-02-22] MEDS: methaDONE HCL 40 MG DISPERSABLE TABLET PO SCH (06:19)
[2023-02-22] MEDS: THIAMINE HCL 200 MG/2 ML VIAL IVPB SCH ×2 (06:21→14:15)
[2023-02-22] MEDS: INSULIN SLIDING SCALE (NOVOLOG) 1 VIAL SQ SCH ×2 (06:23→11:34)
[2023-02-22 07:52] LABS: HEMATOCRIT 34.6 % (35.4-49); HEMOGLOBIN 11.4 GM/dL (11.7-16.9); MCH 29.7 pg (25.7-33.7); MEAN PLT VOLUME 11.2 fl (7.5-11.1); PLATELET COUNT 265 10^3/uL (134-434); RBC 3.85 M/mm3 (4.00-5.60); RDW 15.5 % (11.9-15.9); WHITE BLOOD COUNT 12.3 K/mm3 (4.0-10.0)
[2023-02-22 08:13] LABS: POTASSIUM 5.1 mmol/L (3.5-5.1)
[2023-02-22 08:30] LABS: ALBUMIN 2.8 g/dl (3.4-5.0); BLOOD UREA NITROGEN 19.7 mg/dL (7-18); CALCIUM 9.3 mg/dL (8.5-10.1); MAGNESIUM 1.8 mg/dL (1.8-2.4)
[2023-02-22 08:33] LABS: CREATININE 0.8 mg/dL (0.55-1.3)
[2023-02-22 08:34] LABS: TOT PROT 6.6 g/dl (6.4-8.2)
[2023-02-22 08:35] LABS: BILIRUBIN,TOTAL 0.4 mg/dL (0.2-1)
[2023-02-22] MEDS: NICOTINE 21 MG/24 HOURS TOPICAL PATCH TD SCH (09:57)
[2023-02-22] MEDS: FOLIC ACID 1 MG TABLET (FP) PO SCH (09:57)
[2023-02-22] MEDS: ENOXAPARIN NA (PORCINE) 40 MG/0.4 ML DISP.SYRIN SQ SCH (09:57)
[2023-02-22] MEDS: DOXYCYCLINE INJECTION 100 MG in DEXTROSE 5%-WATER 100 ML IVPB SCH ×2 (09:57→22:06)
[2023-02-22] MEDS: PANTOPRAZOLE 20 MG TABLET PO SCH (09:58)
[2023-02-22] MEDS: TAMSULOSIN HCL 0.4 MG CAP PO SCH (09:58)
[2023-02-22] MEDS: CITALOPRAM HYDROBROMIDE 20 MG TABLET PO SCH (09:58)
[2023-02-22] MEDS: ASPIRIN 81 MG CHEWABLE TABLETS PO SCH (09:58)
[2023-02-22] MEDS: MULTIVITAMINS (DAILY MVI) TABLET (FP) PO SCH (09:58)
[2023-02-22] MEDS: busPIRone HCL 10 MG TABLET (FP) PO SCH ×2 (09:58→21:50)
[2023-02-22] MEDS: LISINOPRIL 5 MG TABLET PO SCH (09:58)
[2023-02-22] MEDS: CEFTRIAXONE 1 GM in DEXTROSE 5%-WATER - 50 ML IVPB SCH (11:26)
[2023-02-22] MEDS ORDERED: INSULIN (NOVOLOG) ASPART 100 UNITS/ML 10ML VIAL ONE (11:32)
[2023-02-22] MEDS ORDERED: chlordiazePOXIDE HCL 25 MG CAPSULE PO PRN (15:53)
[2023-02-22] MEDS ORDERED: SENNOSIDES 8.6MG TABLET (FP) PO PRN (15:53)
[2023-02-22] MEDS ORDERED: INSULIN SLIDING SCALE (NOVOLOG) 1 VIAL SQ SCH (16:30)
[2023-02-22] MEDS ORDERED: MAGNESIUM SULF 50% (8.12 MEQ/2 ML-1 GM VIAL) IVPB ONE (17:15)
[2023-02-22] MEDS ORDERED: INSULIN (LEVEMIR) 100 UNITS/ML UNITS SQ SCH (22:00)
[2023-02-22] MEDS ORDERED: ATORVASTATIN CA 40 MG TABLET (FP) PO SCH (22:00)
[2023-02-22] MEDS ORDERED: THIAMINE HCL 200 MG/2 ML VIAL IVPB SCH (22:00)
[2023-02-23] MEDS ORDERED: chlordiazePOXIDE HCL 25 MG CAPSULE PO SCH (05:00)
[2023-02-23] MEDS: chlordiazePOXIDE HCL 25 MG CAPSULE PO SCH ×2 (05:25→11:14)
[2023-02-23] MEDS: GABAPENTIN 300 MG CAPSULE PO SCH ×2 (05:26→13:58)
[2023-02-23] MEDS ORDERED: methaDONE HCL 40 MG DISPERSABLE TABLET PO SCH (06:00)
[2023-02-23 06:05] VITALS: PULSE 73
[2023-02-23] MEDS: INSULIN (NOVOLOG) ASPART 100 UNITS/ML 10ML VIAL SQ SCH ×2 (06:28→12:44)
[2023-02-23] MEDS: INSULIN SLIDING SCALE (NOVOLOG) 1 VIAL SQ SCH ×2 (06:28→12:43)
[2023-02-23] MEDS ORDERED: INSULIN (LEVEMIR) 100 UNITS/ML UNITS SQ SCH (07:00)
[2023-02-23 07:28] LABS: HEMATOCRIT 33.3 % (35.4-49); HEMOGLOBIN 11.2 GM/dL (11.7-16.9); MCH 30.2 pg (25.7-33.7); MCHC 33.6 g/dl (32.0-35.9); MEAN CELL VOLUME 89.8 fl (80-96); MEAN PLT VOLUME 11.2 fl (7.5-11.1); PLATELET COUNT 309 10^3/uL (134-434); RDW 15.8 % (11.9-15.9); WHITE BLOOD COUNT 9.4 K/mm3 (4.0-10.0)
[2023-02-23 07:57] LABS: ALBUMIN 2.8 g/dl (3.4-5.0); BLOOD UREA NITROGEN 17.9 mg/dL (7-18); MAGNESIUM 1.7 mg/dL (1.8-2.4)
[2023-02-23 08:00] LABS: CREATININE 0.8 mg/dL (0.55-1.3); PHOSPHOROUS 3.4 mg/dL (2.5-4.9)
[2023-02-23 08:01] LABS: BILIRUBIN,TOTAL 0.3 mg/dL (0.2-1); TOT PROT 6.6 g/dl (6.4-8.2)
[2023-02-23] MEDS ORDERED: TAMSULOSIN HCL 0.4 MG CAP PO SCH (08:30)
[2023-02-23 08:47] VITALS: RESP 18
[2023-02-23] MEDS ORDERED: MAGNESIUM SULF 50% (8.12 MEQ/2 ML-1 GM VIAL) IVPB ONE (09:15)
[2023-02-23] MEDS: busPIRone HCL 10 MG TABLET (FP) PO SCH (09:28)
[2023-02-23] MEDS: DOXYCYCLINE INJECTION 100 MG in DEXTROSE 5%-WATER 100 ML IVPB SCH (09:29)
[2023-02-23] MEDS ORDERED: LACTULOSE 20 GM/30 ML UDC (FOR ORAL USE ONLY) PO ONE (09:34)
[2023-02-23] MEDS ORDERED: CEFTRIAXONE 1 GM in DEXTROSE 5%-WATER - 50 ML IVPB SCH (10:00)
[2023-02-23] MEDS ORDERED: MULTIVITAMINS (DAILY MVI) TABLET (FP) PO SCH (10:00)
[2023-02-23] MEDS ORDERED: NICOTINE 21 MG/24 HOURS TOPICAL PATCH TD SCH (10:00)
[2023-02-23] MEDS ORDERED: PANTOPRAZOLE 20 MG TABLET PO SCH (10:00)
[2023-02-23] MEDS ORDERED: LISINOPRIL 5 MG TABLET PO SCH (10:00)
[2023-02-23] MEDS ORDERED: FOLIC ACID 1 MG TABLET (FP) PO SCH (10:00)
[2023-02-23] MEDS ORDERED: CITALOPRAM HYDROBROMIDE 20 MG TABLET PO SCH (10:00)
[2023-02-23] MEDS ORDERED: ASPIRIN 81 MG CHEWABLE TABLETS PO SCH (10:00)
[2023-02-23] MEDS ORDERED: THIAMINE HCL 200 MG/2 ML VIAL IVPB SCH ×2 (10:00)
[2023-02-23] MEDS ORDERED: ENOXAPARIN NA (PORCINE) 40 MG/0.4 ML DISP.SYRIN SQ SCH (10:00)
[2023-02-23] MEDS ORDERED: THIAMINE HCL 100 MG TABLET (FP) PO SCH (10:00)
[2023-02-23 14:22] VITALS: BP 112/62; TEMP 98.2
[2023-02-24] MEDS ORDERED: chlordiazePOXIDE HCL 10 MG CAPSULE PO PRN ×2
[2023-02-24] MEDS ORDERED: chlordiazePOXIDE HCL 10 MG CAPSULE PO SCH ×2 (05:00)
[2023-02-25] MEDS ORDERED: chlordiazePOXIDE HCL 10 MG CAPSULE PO SCH ×2 (05:00)
[2023-02-26] MEDS ORDERED: chlordiazePOXIDE HCL 10 MG CAPSULE PO ONE ×2 (05:00)
== END 2023-02-23 14:23 | disposition other institution (70) | DRG 139 ==
LOC: JER 16:54 → JERBED 21:22 → J4W 02-20 03:24 → OBSVTOIN 02-21 10:05 → J7W 02-22 15:51
PROVIDERS: ADMIT Internal Medicine
PROC: HZ2ZZZZ Detoxification Services for Substance Abuse Treatment (ICD-10-PCS; principal; 2023-02-21)
DX: J18.9 Pneumonia, unspecified organism (principal); E11.40 Type 2 diabetes mellitus with diabetic neuropathy, unspecified; E87.1 Hypo-osmolality and hyponatremia; F11.20 Opioid dependence, uncomplicated; F10.239 Alcohol dependence with withdrawal, unspecified; F13.239 Sedative, hypnotic or anxiolytic dependence with withdrawal, unspecified; F17.210 Nicotine dependence, cigarettes, uncomplicated; I10 Essential (primary) hypertension; N40.0 Benign prostatic hyperplasia without lower urinary tract symptoms
CPT/HCPCS: 0241U-QW; 36415; 70450-TC; 71046-TC-FY; 72125-TC; 72170-TC-FY; 80053; 80307; 81003; 82140; 82550; 82728; 82803; 82962; 83036; 83540; 83550; 83605; 83690; 83735; 84100; 84484; 85025; 85027; 85045; 85610; 85730; 86850; 86900; 86901; 87086; 87899; 93005; 93010; 97116-GP; 99285-25; G0378

== ENCOUNTER 2023-02-23 15:22 | Inpatient (IN) | payer OTHER ==
[2023-02-23 17:08] VITALS: BMI 33.2
[2023-02-23] MEDS ORDERED: SENNOSIDES 8.6MG TABLET (FP) PO PRN (18:39)
[2023-02-23] MEDS ORDERED: chlordiazePOXIDE HCL 10 MG CAPSULE PO PRN (18:39)
[2023-02-23] MEDS ORDERED: POLYETHYLENE GLYCOL (HEALTHYLAX) 3350 17 GM PACKET PO PRN (18:44)
[2023-02-23] MEDS ORDERED: BENZOCAINE/MENTHOL (CHLORASEPTIC ) LOZENGE MM PRN (18:44)
[2023-02-23] MEDS ORDERED: MAG HYDROX/AL HYDROX/SIMETH 30 ML UNIT-DOSE CUP PO PRN (18:44)
[2023-02-23] MEDS ORDERED: BENZONATATE 200 MG CAPSULE PO PRN (18:44)
[2023-02-23] MEDS ORDERED: guaiFENesin 600 MG TABLET.ER (FP) PO PRN (18:44)
[2023-02-23] MEDS ORDERED: NALOXONE HCL 0.4 MG/ML VIAL IM PRN (18:44)
[2023-02-23] MEDS ORDERED: LOPERAMIDE HCL 2 MG CAPSULE PO PRN (18:44)
[2023-02-23] MEDS ORDERED: P-EPHED 60MG/TRIPROLIDI 2.5MG TABLET PO PRN (18:44)
[2023-02-23] MEDS ORDERED: IBUPROFEN 400 MG TABLET (FP) PO PRN (18:44)
[2023-02-23] MEDS ORDERED: NALOXONE HCL (KLOXXADO) 8 MG SPRAY NS PRN (18:44)
[2023-02-23] MEDS ORDERED: DICYCLOMINE HCL 10 MG CAPSULE PO PRN (18:44)
[2023-02-23] MEDS ORDERED: BISMUTH SUBSALICYLATE 524 MG/30 ML PO PRN (18:44)
[2023-02-23] MEDS ORDERED: ONDANSETRON *ODT* 4 MG TABLET SL PRN (18:44)
[2023-02-23] MEDS ORDERED: ACETAMINOPHEN 325 MG TABLET (FP) PO PRN ×2 (18:44)
[2023-02-23] MEDS ORDERED: MAGNESIUM HYDROX 2400MG/30ML ORAL SUSPENSION 30 ML CUP PO PRN (18:44)
[2023-02-23] MEDS ORDERED: DOXYCYCLINE HYCLATE 100 MG TABLET PO SCH (20:00)
[2023-02-23] MEDS: INSULIN (LEVEMIR) 100 UNITS/ML UNITS SQ SCH (21:59)
[2023-02-23] MEDS: AMOX TR/POT CLAV 875MG/125MG TABLETS (FP) PO SCH (22:00)
[2023-02-23] MEDS: GABAPENTIN 300 MG CAPSULE PO SCH (22:00)
[2023-02-23] MEDS: INSULIN SLIDING SCALE (NOVOLOG) 1 VIAL SQ SCH (22:00)
[2023-02-23] MEDS: ATORVASTATIN CA 40 MG TABLET (FP) PO SCH (22:00)
[2023-02-23] MEDS: DOCUSATE SODIUM 100 MG CAPSULE (FP) PO SCH (22:00)
[2023-02-23] MEDS: THIAMINE HCL 100 MG TABLET (FP) PO SCH (22:00)
[2023-02-23] MEDS: DOXYCYCLINE HYCLATE 100 MG TABLET PO SCH (22:01)
[2023-02-23] MEDS: MELATONIN 5 MG TABLETS PO PRN (22:01)
[2023-02-24] MEDS: metFORMIN HCL 500 MG TABLET (FP) PO SCH ×2 (06:00→16:50)
[2023-02-24] MEDS: GABAPENTIN 300 MG CAPSULE PO SCH ×3 (06:00→23:56)
[2023-02-24] MEDS: INSULIN SLIDING SCALE (NOVOLOG) 1 VIAL SQ SCH ×3 (06:11→16:50)
[2023-02-24] MEDS: TAMSULOSIN HCL 0.4 MG CAP PO SCH (08:40)
[2023-02-24] MEDS: LISINOPRIL 5 MG TABLET PO SCH (10:32)
[2023-02-24] MEDS: AMOX TR/POT CLAV 875MG/125MG TABLETS (FP) PO SCH ×2 (10:32→17:46)
[2023-02-24] MEDS: PANTOPRAZOLE 20 MG TABLET PO SCH (10:32)
[2023-02-24] MEDS: ASPIRIN 81 MG CHEWABLE TABLETS PO SCH (10:32)
[2023-02-24] MEDS: PRENATAL VITAMINS W/ FOLIC ACID TABLET (FP) PO SCH (10:32)
[2023-02-24] MEDS: DOXYCYCLINE HYCLATE 100 MG TABLET PO SCH ×2 (10:32→17:48)
[2023-02-24] MEDS: FOLIC ACID 1 MG TABLET (FP) PO SCH (10:32)
[2023-02-24] MEDS: methaDONE HCL 40 MG DISPERSABLE TABLET PO SCH (13:27)
[2023-02-24] MEDS: THIAMINE HCL 100 MG TABLET (FP) PO SCH (23:56)
[2023-02-24] MEDS: INSULIN (LEVEMIR) 100 UNITS/ML UNITS SQ SCH (23:56)
[2023-02-24] MEDS: ATORVASTATIN CA 40 MG TABLET (FP) PO SCH (23:56)
[2023-02-24] MEDS: DOCUSATE SODIUM 100 MG CAPSULE (FP) PO SCH (23:56)
[2023-02-25] MEDS: methaDONE HCL 40 MG DISPERSABLE TABLET PO SCH (05:54)
[2023-02-25] MEDS: GABAPENTIN 300 MG CAPSULE PO SCH ×3 (05:55→22:50)
[2023-02-25] MEDS: INSULIN SLIDING SCALE (NOVOLOG) 1 VIAL SQ SCH ×3 (06:23→17:13)
[2023-02-25] MEDS: metFORMIN HCL 500 MG TABLET (FP) PO SCH ×2 (06:23→17:13)
[2023-02-25] MEDS: AMOX TR/POT CLAV 875MG/125MG TABLETS (FP) PO SCH ×2 (08:16→17:13)
[2023-02-25] MEDS: TAMSULOSIN HCL 0.4 MG CAP PO SCH (08:16)
[2023-02-25] MEDS: LISINOPRIL 5 MG TABLET PO SCH (10:51)
[2023-02-25] MEDS: FOLIC ACID 1 MG TABLET (FP) PO SCH (10:51)
[2023-02-25] MEDS: PRENATAL VITAMINS W/ FOLIC ACID TABLET (FP) PO SCH (10:51)
[2023-02-25] MEDS: DOXYCYCLINE HYCLATE 100 MG TABLET PO SCH ×2 (10:51→17:13)
[2023-02-25] MEDS: PANTOPRAZOLE 20 MG TABLET PO SCH (10:51)
[2023-02-25] MEDS: ASPIRIN 81 MG CHEWABLE TABLETS PO SCH (10:51)
[2023-02-25 11:17] LABS: BASO % 1.1 % (0-2.0); EOS % 3.6 % (0-4.5); HEMATOCRIT 33.1 % (35.4-49); HEMOGLOBIN 10.9 GM/dL (11.7-16.9); MCH 29.4 pg (25.7-33.7); MCHC 32.9 g/dl (32.0-35.9); MEAN CELL VOLUME 89.6 fl (80-96); MEAN PLT VOLUME 10.8 fl (7.5-11.1); MONO % 12.3 % (3.8-10.2); PLATELET COUNT 276 10^3/uL (134-434); RBC 3.69 M/mm3 (4.00-5.60); RDW 15.6 % (11.9-15.9); WHITE BLOOD COUNT 8.5 K/mm3 (4.0-10.0)
[2023-02-25 11:20] LABS: POTASSIUM 4.5 mmol/L (3.5-5.1)
[2023-02-25 11:26] LABS: CALCIUM 9.5 mg/dL (8.5-10.1)
[2023-02-25 11:27] LABS: ALBUMIN 2.8 g/dl (3.4-5.0); BLOOD UREA NITROGEN 18.9 mg/dL (7-18)
[2023-02-25 11:28] LABS: CREATININE 0.8 mg/dL (0.55-1.3)
[2023-02-25 11:32] LABS: TOT PROT 6.5 g/dl (6.4-8.2)
[2023-02-25 11:35] LABS: BILIRUBIN,TOTAL 0.3 mg/dL (0.2-1)
[2023-02-25] MEDS: LACTULOSE 20 GM/30 ML UDC (FOR ORAL USE ONLY) PO SCH ×3 (14:12→22:51)
[2023-02-25] MEDS: DOCUSATE SODIUM 100 MG CAPSULE (FP) PO SCH (22:50)
[2023-02-25] MEDS: ATORVASTATIN CA 40 MG TABLET (FP) PO SCH (22:50)
[2023-02-25] MEDS: THIAMINE HCL 100 MG TABLET (FP) PO SCH (22:51)
[2023-02-25] MEDS: INSULIN (LEVEMIR) 100 UNITS/ML UNITS SQ SCH (23:05)
[2023-02-26] MEDS: GABAPENTIN 300 MG CAPSULE PO SCH ×3 (05:32→22:03)
[2023-02-26] MEDS: methaDONE HCL 40 MG DISPERSABLE TABLET PO SCH (05:33)
[2023-02-26] MEDS: metFORMIN HCL 500 MG TABLET (FP) PO SCH ×2 (06:03→17:07)
[2023-02-26] MEDS: INSULIN SLIDING SCALE (NOVOLOG) 1 VIAL SQ SCH ×3 (06:03→17:07)
[2023-02-26] MEDS: AMOX TR/POT CLAV 875MG/125MG TABLETS (FP) PO SCH ×2 (07:06→17:14)
[2023-02-26] MEDS: PANTOPRAZOLE 20 MG TABLET PO SCH (09:51)
[2023-02-26] MEDS: PRENATAL VITAMINS W/ FOLIC ACID TABLET (FP) PO SCH (09:51)
[2023-02-26] MEDS: DOXYCYCLINE HYCLATE 100 MG TABLET PO SCH ×2 (09:51→17:14)
[2023-02-26] MEDS: FOLIC ACID 1 MG TABLET (FP) PO SCH (09:52)
[2023-02-26] MEDS: ASPIRIN 81 MG CHEWABLE TABLETS PO SCH (09:52)
[2023-02-26] MEDS: LISINOPRIL 5 MG TABLET PO SCH (09:52)
[2023-02-26] MEDS: TAMSULOSIN HCL 0.4 MG CAP PO SCH (09:52)
[2023-02-26] MEDS: LACTULOSE 20 GM/30 ML UDC (FOR ORAL USE ONLY) PO SCH ×4 (09:53→22:03)
[2023-02-26] MEDS: hydrOXYzine PAMOATE 25 MG CAPSULE (FP) PO PRN ×2 (17:58→22:04)
[2023-02-26] MEDS: DOCUSATE SODIUM 100 MG CAPSULE (FP) PO SCH (22:02)
[2023-02-26] MEDS: ATORVASTATIN CA 40 MG TABLET (FP) PO SCH (22:02)
[2023-02-26] MEDS: THIAMINE HCL 100 MG TABLET (FP) PO SCH (22:02)
[2023-02-26] MEDS: INSULIN (LEVEMIR) 100 UNITS/ML UNITS SQ SCH (22:03)
[2023-02-26] MEDS: MELATONIN 5 MG TABLETS PO PRN (22:21)
[2023-02-27] MEDS: INSULIN SLIDING SCALE (NOVOLOG) 1 VIAL SQ SCH ×3 (06:31→17:23)
[2023-02-27] MEDS: metFORMIN HCL 500 MG TABLET (FP) PO SCH ×2 (06:31→17:23)
[2023-02-27] MEDS: GABAPENTIN 300 MG CAPSULE PO SCH ×3 (06:32→22:38)
[2023-02-27] MEDS: methaDONE HCL 40 MG DISPERSABLE TABLET PO SCH (06:32)
[2023-02-27] MEDS: AMOX TR/POT CLAV 875MG/125MG TABLETS (FP) PO SCH ×2 (07:06→17:30)
[2023-02-27] MEDS: DOXYCYCLINE HYCLATE 100 MG TABLET PO SCH ×2 (09:44→17:30)
[2023-02-27] MEDS: TAMSULOSIN HCL 0.4 MG CAP PO SCH (09:44)
[2023-02-27] MEDS: ASPIRIN 81 MG CHEWABLE TABLETS PO SCH (09:44)
[2023-02-27] MEDS: LISINOPRIL 5 MG TABLET PO SCH (09:45)
[2023-02-27] MEDS: PANTOPRAZOLE 20 MG TABLET PO SCH (09:45)
[2023-02-27] MEDS: FOLIC ACID 1 MG TABLET (FP) PO SCH (09:45)
[2023-02-27] MEDS: LACTULOSE 20 GM/30 ML UDC (FOR ORAL USE ONLY) PO SCH ×4 (09:46→22:38)
[2023-02-27] MEDS: PRENATAL VITAMINS W/ FOLIC ACID TABLET (FP) PO SCH (09:46)
[2023-02-27] MEDS ORDERED: INSULIN SLIDING SCALE (NOVOLOG) 1 VIAL SQ ONE (10:55)
[2023-02-27] MEDS: DOCUSATE SODIUM 100 MG CAPSULE (FP) PO SCH (22:37)
[2023-02-27] MEDS: ATORVASTATIN CA 40 MG TABLET (FP) PO SCH (22:38)
[2023-02-27] MEDS: THIAMINE HCL 100 MG TABLET (FP) PO SCH (22:38)
[2023-02-27] MEDS: INSULIN (LEVEMIR) 100 UNITS/ML UNITS SQ SCH (22:38)
[2023-02-27] MEDS: MELATONIN 5 MG TABLETS PO PRN (22:39)
[2023-02-27] MEDS: hydrOXYzine PAMOATE 25 MG CAPSULE (FP) PO PRN (22:39)
[2023-02-28] MEDS: methaDONE HCL 40 MG DISPERSABLE TABLET PO SCH (06:11)
[2023-02-28] MEDS: GABAPENTIN 300 MG CAPSULE PO SCH ×3 (06:11→21:55)
[2023-02-28] MEDS: metFORMIN HCL 500 MG TABLET (FP) PO SCH ×2 (06:12→17:28)
[2023-02-28] MEDS: INSULIN SLIDING SCALE (NOVOLOG) 1 VIAL SQ SCH ×3 (06:12→17:27)
[2023-02-28] MEDS: AMOX TR/POT CLAV 875MG/125MG TABLETS (FP) PO SCH ×2 (07:32→17:28)
[2023-02-28] MEDS: hydrOXYzine PAMOATE 25 MG CAPSULE (FP) PO PRN ×3 (07:32→17:49)
[2023-02-28] MEDS: TAMSULOSIN HCL 0.4 MG CAP PO SCH (07:32)
[2023-02-28] MEDS: LISINOPRIL 5 MG TABLET PO SCH (09:48)
[2023-02-28] MEDS: ASPIRIN 81 MG CHEWABLE TABLETS PO SCH (09:48)
[2023-02-28] MEDS: PANTOPRAZOLE 20 MG TABLET PO SCH (09:48)
[2023-02-28] MEDS: FOLIC ACID 1 MG TABLET (FP) PO SCH (09:48)
[2023-02-28] MEDS: DOXYCYCLINE HYCLATE 100 MG TABLET PO SCH ×2 (09:49→17:28)
[2023-02-28] MEDS: LACTULOSE 20 GM/30 ML UDC (FOR ORAL USE ONLY) PO SCH ×5 (09:49→21:52)
[2023-02-28] MEDS: PRENATAL VITAMINS W/ FOLIC ACID TABLET (FP) PO SCH (09:49)
[2023-02-28] MEDS ORDERED: INSULIN SLIDING SCALE (NOVOLOG) 1 VIAL SQ ONE (11:40)
[2023-02-28] MEDS: INSULIN (LEVEMIR) 100 UNITS/ML UNITS SQ SCH (21:53)
[2023-02-28] MEDS: DOCUSATE SODIUM 100 MG CAPSULE (FP) PO SCH (21:53)
[2023-02-28] MEDS: THIAMINE HCL 100 MG TABLET (FP) PO SCH (21:55)
[2023-02-28] MEDS: MELATONIN 5 MG TABLETS PO PRN (21:55)
[2023-02-28] MEDS: ATORVASTATIN CA 40 MG TABLET (FP) PO SCH (21:56)
[2023-03-01] MEDS: methaDONE HCL 40 MG DISPERSABLE TABLET PO SCH (05:46)
[2023-03-01] MEDS: GABAPENTIN 300 MG CAPSULE PO SCH ×3 (05:46→21:47)
[2023-03-01] MEDS: metFORMIN HCL 500 MG TABLET (FP) PO SCH ×2 (06:51→17:23)
[2023-03-01] MEDS: AMOX TR/POT CLAV 875MG/125MG TABLETS (FP) PO SCH (07:29)
[2023-03-01] MEDS: INSULIN SLIDING SCALE (NOVOLOG) 1 VIAL SQ SCH ×2 (07:30→11:34)
[2023-03-01] MEDS: TAMSULOSIN HCL 0.4 MG CAP PO SCH (08:41)
[2023-03-01] MEDS: PANTOPRAZOLE 20 MG TABLET PO SCH (10:14)
[2023-03-01] MEDS: ASPIRIN 81 MG CHEWABLE TABLETS PO SCH (10:14)
[2023-03-01] MEDS: PRENATAL VITAMINS W/ FOLIC ACID TABLET (FP) PO SCH (10:14)
[2023-03-01] MEDS: LACTULOSE 20 GM/30 ML UDC (FOR ORAL USE ONLY) PO SCH ×4 (10:14→21:46)
[2023-03-01] MEDS: LISINOPRIL 5 MG TABLET PO SCH (10:14)
[2023-03-01] MEDS: FOLIC ACID 1 MG TABLET (FP) PO SCH (10:14)
[2023-03-01] MEDS: INSULIN (NOVOLOG) ASPART 100 UNITS/ML 10ML VIAL SQ SCH (17:26)
[2023-03-01] MEDS: ATORVASTATIN CA 40 MG TABLET (FP) PO SCH (21:48)
[2023-03-01] MEDS: THIAMINE HCL 100 MG TABLET (FP) PO SCH (21:48)
[2023-03-01] MEDS: INSULIN (LEVEMIR) 100 UNITS/ML UNITS SQ SCH (21:48)
[2023-03-01] MEDS: DOCUSATE SODIUM 100 MG CAPSULE (FP) PO SCH (21:48)
[2023-03-01] MEDS: MELATONIN 5 MG TABLETS PO PRN (21:51)
[2023-03-02] MEDS ORDERED: INSULIN SLIDING SCALE (NOVOLOG) 1 VIAL SQ ONE ×3 (06:17→13:53)
[2023-03-02] MEDS: methaDONE HCL 40 MG DISPERSABLE TABLET PO SCH (06:22)
[2023-03-02] MEDS: metFORMIN HCL 500 MG TABLET (FP) PO SCH (06:23)
[2023-03-02] MEDS: INSULIN (NOVOLOG) ASPART 100 UNITS/ML 10ML VIAL SQ SCH ×2 (06:24→11:45)
[2023-03-02] MEDS: GABAPENTIN 300 MG CAPSULE PO SCH ×2 (06:24→13:56)
[2023-03-02] MEDS: TAMSULOSIN HCL 0.4 MG CAP PO SCH (08:53)
[2023-03-02] MEDS: LACTULOSE 20 GM/30 ML UDC (FOR ORAL USE ONLY) PO SCH ×2 (10:10→13:56)
[2023-03-02] MEDS: PANTOPRAZOLE 20 MG TABLET PO SCH (10:10)
[2023-03-02] MEDS: LISINOPRIL 5 MG TABLET PO SCH (10:10)
[2023-03-02] MEDS: PRENATAL VITAMINS W/ FOLIC ACID TABLET (FP) PO SCH (10:10)
[2023-03-02] MEDS: ASPIRIN 81 MG CHEWABLE TABLETS PO SCH (10:10)
[2023-03-02] MEDS: FOLIC ACID 1 MG TABLET (FP) PO SCH (10:10)
[2023-03-02 13:36] VITALS: BP 105/59; PULSE 71; RESP 18; TEMP 97.8
[2023-03-02] MEDS ORDERED: QUEtiapine FUMARATE 50 MG TABLET PO SCH (22:00)
[2023-03-03] MEDS ORDERED: CITALOPRAM HYDROBROMIDE 10 MG TABLET PO SCH (10:00)
== END 2023-03-02 17:25 | disposition home or self-care (01) | DRG 773 ==
LOC: YASAS 15:22 → Y3N 18:55
PROVIDERS: ADMIT Allergy & Immunology; ATTEND Surgery
PROC: HZ2ZZZZ Detoxification Services for Substance Abuse Treatment (ICD-10-PCS; principal; 2023-02-23)
DX: F10.230 Alcohol dependence with withdrawal, uncomplicated (principal); F11.20 Opioid dependence, uncomplicated; F13.20 Sedative, hypnotic or anxiolytic dependence, uncomplicated; F17.210 Nicotine dependence, cigarettes, uncomplicated; F19.24 Other psychoactive substance dependence with psychoactive substance-induced mood disorder; F41.8 Other specified anxiety disorders; E11.9 Type 2 diabetes mellitus without complications; Z79.4 Long term (current) use of insulin; E78.5 Hyperlipidemia, unspecified; I10 Essential (primary) hypertension; G47.00 Insomnia, unspecified; R41.82 Altered mental status, unspecified; R33.9 Retention of urine, unspecified; R79.89 Other specified abnormal findings of blood chemistry; Z87.01 Personal history of pneumonia (recurrent); Z89.421 Acquired absence of other right toe(s); W19.XXXA Unspecified fall, initial encounter; Y92.238 Other place in hospital as the place of occurrence of the external cause
CPT/HCPCS: 36415; 71046-TC-FY; 80053; 82140; 82962; 85025; 87811; C9803-CS; U0003; U0005

== ENCOUNTER 2023-02-24 19:44 | Emergency (ER) | payer OTHER ==
[2023-02-24 19:51] VITALS: BP 108/58; PULSE 74; RESP 18; TEMP 99; BMI 31.3
[2023-02-24 20:46] LABS: PH,URINE 5.5 (5.0-8.0); URINE APPEARANCE CLEAR; URINE BILIRUBIN NEGATIVE (NEGATIVE); URINE COLOR YELLOW; URINE GLUCOSE (UA) 1+ (NEGATIVE); URINE KETONE NEGATIVE (NEGATIVE); URINE LEUK ESTERASE NEGATIVE (NEGATIVE); URINE NITRITE NEGATIVE (NEGATIVE); URINE PROTEIN NEGATIVE (NEGATIVE); URINE UROBILINOGEN 0.2 mg/dL (0.2-1.0)
[2023-02-24 23:25] LABS: POTASSIUM 5.2 mmol/L (3.5-5.1)
[2023-02-24 23:28] LABS: CALCIUM 9.3 mg/dL (8.5-10.1)
[2023-02-24 23:29] LABS: BLOOD UREA NITROGEN 22.4 mg/dL (7-18)
[2023-02-24 23:34] LABS: BILIRUBIN,TOTAL 0.4 mg/dL (0.2-1); TOT PROT 6.7 g/dl (6.4-8.2)
== END 2023-02-25 00:38 | disposition home or self-care (01) ==
LOC: JER 19:44
DX: R33.9 Retention of urine, unspecified (principal); Z20.822 Contact with and (suspected) exposure to COVID-19
CPT/HCPCS: 0241U-QW; 36415; 70450-TC; 80053; 81003; 87086; 99284-25